=== PATIENT | male | born 1950 | race African-American/Black ===

== ENCOUNTER 2024-11-14 10:32 | Inpatient (IN) | payer OTHER ==
[~2024-11-14] VITALS: Ht 175.3 cm; Wt 77.0 kg
--- NOTE | 2024-11-14 10:41 | ED.PDOC ---
GI ASSESSMENT HPI Comments This is a 74 year old male REYNAA presenting to the ED with chief complaint of abdominal pain. EMS reports that the patient is coming from [facility] for abdominal pain for the past 3 days with associated fever and generalized weakness for the past 3 weeks. EMS relays that the patient is bed bound and currently has a Faith catheter which was noted to have cloudy urine today. Patient denies any chest pain, SOB, dizziness, chills, dysuria, hematuria, or N/V/D. Time Seen by MD: 10:38 Reviewed Notes: Nurses Notes, Service Parts Driver Notes, Medications, Allergies Information Source: Patient, Emergency Med Personnel Mode of Arrival: EMS Timing: Weeks Duration: Since onset Prehospital treatment: None Quality: Aching Vomitus: None Stool: Normal Severity: Moderate Recent: None Recent Hx of: None Pain Location: Diffuse Modifying Factors: Nothing Associated sign and symptoms: Abdominal Pain, Fever Past Medical History PAST MEDICAL HISTORY: CKF Surgical History: Denies all surgeries Family History Family History: Reviewed,noncontributory to illness Social History Smoker: Non-Smoker Alcohol: Denies ETOH Use Drugs: Denies Drug Use Lives In: Home Constitutional: reports: fever, weakness; denies: chills, diaphoresis, fatigue, malaise, sweats, others EENTM: denies: blurred vision, double vision, ear bleeding, ear discharge, ear drainage, ear pain, ear ringing, eye pain, eye redness, hearing loss, mouth pain, mouth swelling, nasal discharge, nose bleeding, nose congestion, nose pain, photophobia, tearing, throat pain, throat swelling, voice changes, others Respiratory: denies: cough, hemoptysis, orthopnea, SOB at rest, shortness of breath, SOB with excertion, stridor, wheezing, others Cardiovascular: denies: chest pain, dizzy spells, diaphoresis, Dyspnea on exertion, edema, irregular heart beat, left arm pain, lightheadedness, pal pitations, PND, syncope, others Gastrointestinal: reports: abdominal pain; denies: abdomen distended, blood streaked bowels, constipated, diarrhea, dysphagia, difficulty swallowing, hematemesis, melena, nausea, poor appetite, poor fluid intake, rectal bleeding, rectal pain, vomiting, others Genitourinary: denies: burning, dysuria, flank pain, frequency, hematuria, incontinence, penile discharge, penile sore, pain, testicle pain, testicle swell ing, urgency, others Neurological: denies: dizziness, fainting, headache, left sided numbness, left sided weakness, numbness, paresthesia, pre-existing deficit, right sided numbness, right sided weakness, seizure, speech problems, tingling, tremors, weakness, others Musculoskeletal: denies: back pain, gout, joint pain, joint swelling, muscle pain, muscle stiffness, neck pain, others Integumetry: denies: bruises, change in color, change in hair/nails, dryness, laceration, lesions, lumps, rash, wounds, others Allergic/Immunocompromised: denies: Difficulty Healing, Frequent Infections, Hives, Itching, others Hematologic/Lymphatic: denies: anemia, blood clots, easy bleeding, easy bruising, swollen glands, others Endocrine: denies: excessive hunger, excessive sweating, excessive thirst, excessive urination, flushing, intolerance to cold, intolerance to heat, unexplained weight gain, unexplained weight loss, others Psychiatric: denies: anxiety, bipolar disorder, depression, hopeless, panic disorder, schizophrenia, sleepless, suicidal, others All Other Systems: Reviewed and Negative Physical Exam General Appearance: Moderate Distress, Normal HEENT: Normal ENT Inspection, Pharynx Normal, TMs Normal Neck: Full Range of Motion, Non-Tender, Normal, Normal Inspection Respiratory: Chest Non-Tender, Lungs Clear, No Accessory Muscle Use, No Respiratory Distress, Normal Breath Sounds Cardiovascular: No Edema, No JVD, No Murmur, No Gallop, Normal Peripheral Pulses, Regular Rate/Rhythm Breast Exam: Deferred Gastrointestinal: No Organomegaly, Non Tender, No Pulsatile Mass, Normal Bowel Sounds, Soft Genitalia: Deferred Pelvic: Deferred Rectal: Deferred Extremities: No calf tenderness, Normal capillary refill, Non-tender, No pedal edema Musculoskeletal : Apperance: Normal Neurologic: Disoriented Cerebellar Function: NOT DONE Reflexes: NOT DONE Skin: Dry, Normal Color, Warm Peripheral Pulses: 3+ Radial (R), 3+ Radial (L) Lymphatic: No Adenopathy Was a procedure done? Was a procedure done?: No GI differential Dx Differential Diagnosis: Constipation, Diverticular disease, Esophagitis, Gastritis/PUD, Gastroenteritis X-Ray, Labs, Meds, VS Vital Signs Date Time Temp Pulse Resp B/P (MAP) Pulse Ox O2 Delivery O2 Flow Rate FiO2 11/14/24 12:00 109 95 Room Air* 0 21 11/14/24 11:51 112 113/54 (73) 95 11/14/24 10:35 98.3 122 17 152/70 96 98.3 Lab Test 11/14/24 12:00 Range/Units White Blood Count Pending Red Blood Count Pending Hemoglobin Pending Hematocrit Pending Mean Corpuscular Volume Pending Mean Corpuscular Hemoglobin Pending Mean Corpuscular Hemoglobin Concent Pending Red Cell Distribution Width Pending Platelet Count Pending Mean Platelet Volume Pending Neutrophils (%) (Auto) Pending Lymphocytes (%) (Auto) Pending Monocytes (%) (Auto) Pending Basophils (%) (Auto) Pending Neutrophils # (Auto) Pending Lymphocytes # (Auto) Pending Monocytes # (Auto) Pending Prothrombin Time 11.9 H 9.3-11.8 sec Prothrombin Time INR 1.14 0.9-1.15 Activated Partial Thromboplast Time 23.9 L 24.5-34.5 SEC Sodium Level Pending Potassium Level Pending Chloride Level Pending Carbon Dioxide Level Pending Anion Gap Pending Blood Urea Nitrogen Pending Creatinine Pending Glomerular Filtration Rate Calc Pending BUN/Creatinine Ratio Pending Serum Glucose Pending Lactic Acid Level Pending Calcium Level Pending Total Bilirubin Pending Aspartate Amino Transferase (AST) Pending Alanine Aminotransferase (ALT) Pending Alkaline Phosphatase Pending Total Protein Pending Albumin Pending Current Medications Medications (Trade) Dose Ordered Sig/[place] Route Start Time Stop Time Status Last Admin Vancomycin HCl 200 ml @ 200 mls/hr ONCE ONCE IV 11/14/24 11:00 11/14/24 11:59 DC 11/14/24 11:49 Sodium Chloride 1,000 ml @ 1,000 mls/hr Q1H ONCE IV 11/14/24 11:00 11/14/24 11:59 DC 11/14/24 11:49 Chest XR: [facility] [id number] [place] [id number] Ph: [phone] DIAGNOSTIC IMAGING Diagnostic Imaging Report : [id number] Signed PATIENT: PEYTON LY ACCT: [id number] UNIT: [id number] : 1950 LOC: ER ROOM / BED: / AGE / SEX: 74 / M ADM STATUS: REG ER SERVICE 1059 ORDERING PHYSICIAN: BLANQUITA GRESHAM MD PROCEDURE(s): CXRP - CHEST PORTABLE REASON: sob ORDER NUMBER(s): [id number], ACCESSION NUMBER(s): [id number] EXAM: XY CHEST PORTABLE Indication: sob Technique: Single frontal view of the chest was obtained Comparison: None FINDINGS: Lines and Tubes: None Lungs: No focal consolidation. Pleura: No effusion. No pneumothorax. Cardiomediastinal contours: Unremarkable Bones: No acute osseous abnormality. IMPRESSION: No acute cardiopulmonary disease. ATED BY: FALGUNI LOVE MD DICTATED DATE/TIME: 11/14/24 114 SIGNED BY: FALGUNI LOVE MD SIGNED DATE/TIME: 11/14/24 114 CC: Patient disoriented. Unable to get history. Vitals stable. Chronic symptom. Has a Faith catheter in place. Chest x-ray reviewed does not show any acute process. Sepsis protocol. Reviewed his history. Continue to monitor. Images Reviewed?: Images reviewed and evaluated by me Time of 1ST Reevaluation: 11:37 Reevaluation 1ST: Unchanged Patient Education/Counseling: Diagnosis, Treatment Family Education/Counseling: No Family Present SEPSIS Sepsis Screen Physician Orders Complete Blood Count (11/14/24 10:59) Comprehensive Metabolic Panel (11/14/24 10:59) Urinalysis (11/14/24 10:59) Chest Portable (11/14/24 10:59) Accucheck (11/14/24 10:59) Blood Culture (11/14/24 10:59) Lactic Acid W/ Reflex Order (11/14/24 12:00) Cefepime 1gm/ 50ml (Maxipime 1gm/50ml) (11/14/24 14:00) Notify Md If Map <65 Or Bp<90 (11/14/24 10:59) If Map<65 Start Vasopressor (11/14/24 10:59) Sepsis Reassesment After Fluid (11/14/24 11:59) Sodium Chloride 0.9% (11/14/24 11:00) Vital Signs Date Time Temp Pulse Resp B/P (MAP) Pulse Ox O2 Delivery O2 Flow Rate FiO2 11/14/24 12:00 109 95 Room Air* 0 21 11/14/24 11:51 112 113/54 (73) 95 11/14/24 10:35 98.3 122 17 152/70 96 98.3 Laboratory Tests Test 11/14/24 12:00 Lactic Acid Level Pending White Blood Count Pending Medications Medications Dose Ordered Sig/[place] Route Start Time Stop Time Status Last Admin Dose Admin Sodium Chloride 1,000 ml @ 1,000 mls/hr Q1H ONCE IV 11/14/24 11:00 11/14/24 11:59 DC 11/14/24 11:49 Vancomycin HCl 200 ml @ 200 mls/hr ONCE ONCE IV 11/14/24 11:00 11/14/24 11:59 DC 11/14/24 11:49 Departure 1 Departure Time of Disposition: 12:39 Impression: Primary Impression: Sepsis, unspecified organism Qualified Codes: A41.9 - Sepsis, unspecified organism Disposition: ADMITTED INPATIENT Admit to: Med Surg Condition: Guarded Critical Care Note Critical Care Time?: Yes (90 min-critical care time only) Stability Stability form required: No Heart Score Heart Score: Heart Score Response (Comments) Value History N/A 0 EKG N/A 0 Age N/A 0 Risk Factors N/A 0 Troponin N/A 0 Total 0 I personally scribed for BLANQUITA GRESHAM MD ([email or web address]) on 11/14/24 at 10:41. Electronically submitted by Garcia Covarrubias ([email or web address]). I personally scribed for BLANQUITA GRESHAM MD ([email or web address]) on 11/14/24 at 11:58. Electronically submitted by Garcia Covarrubias ([email or web address]). BLANQUITA GRESHAM MD Nov 14, 2024 10:41
--- NOTE | 2024-11-14 11:46 | DVH ---
EXAM: XY CHEST PORTABLE Indication: sob Technique: Single frontal view of the chest was obtained Comparison: None FINDINGS: Lines and Tubes: None Lungs: No focal consolidation. Pleura: No effusion. No pneumothorax. Cardiomediastinal contours: Unremarkable Bones: No acute osseous abnormality. IMPRESSION: No acute cardiopulmonary disease.
[2024-11-14] MEDS: VANCOMYCIN 1GM/200ML PM 200 ML IV ONE (11:49)
[2024-11-14] MEDS: SODIUM CHLORIDE 0.9% 1,000 ML IV ONE ×3 (11:49→19:30)
[2024-11-14 12:00] VITALS: PULSE 109; O2SAT 95
[2024-11-14 12:29] LABS: INR 1.14 (0.9-1.15); Partial Thromboplastin Time 23.9 SEC (24.5-34.5); Prothrombin Time 11.9 sec (9.3-11.8)
[2024-11-14 12:35] LABS: Anion Gap 10 (5-15); BUN/Creatinine Ratio 28.8 (10.0-20.0); Calcium 9.5 mg/dL (8.7-10.4); Carbon Dioxide 25 mmol/L (20-31); Chloride 100 mmol/L (98-107); Potassium 3.9 mmol/L (3.5-5.1); Total Protein 6.8 g/dL (5.7-8.2)
[2024-11-14 12:36] LABS: Albumin 3.8 g/dL (3.2-4.8); Bilirubin, Total 0.5 mg/dL (0.2-1.0)
[2024-11-14 12:38] LABS: Alanine Aminotransferase 371 U/L (7-40); Alkaline Phosphatase 520 U/L (46-116); Blood Urea Nitrogen 44 mg/dL (9-23); Glucose 121 mg/dL (74-106); Sodium 135 mmol/L (136-145)
[2024-11-14 12:39] LABS: Lactic Acid w/Reflex 2.6 mmol/L (0.4-2.0)
[2024-11-14] MEDS: CEFEPIME 1GM/ 50ML 50 ML IV SCH ×2 (14:18→21:59)
[2024-11-14 15:15] LABS: Hematocrit 27.3 % (41.0-53.0); Hemoglobin 8.8 g/dL (13.5-17.5); Mean Corpuscular Hemoglobin 28.2 pg (28.0-32.0); Mean Corpuscular Volume 87.4 fL (80.0-100.0); Nucleated Red Blood Cells % 0.1 %
[2024-11-14 19:26] LABS: Urine Amorphous Crystal FEW /hpf (None Seen); Urine Protein, UAD 1+ (Negative); Urine WBC Clumps PRESENT /hpf (None Seen)
[2024-11-14] MEDS ORDERED: ACETAMINOPHEN 325 MG TAB PO PRN (19:30)
[2024-11-14] MEDS ORDERED: ONDANSETRON HCL 4 MG/2 ML VIAL IV PRN (19:30)
[2024-11-14] MEDS ORDERED: VANCOMYCIN PER PHARMACY 0 MG IV SCH (19:30)
--- NOTE | 2024-11-14 19:30 | DVHHP2 ---
Admitting Diagnosis: Lower abdominal pain History of Present Illness This is a 74 year old male SANG presenting to the ED with chief complaint of abdominal pain. EMS reports that the patient is coming from [facility] for abdominal pain for the past 3 days with associated fever and generalized weakness for the past 3 weeks. EMS relays that the patient is bed bound and currently has a Faith catheter which was noted to have cloudy urine today. Patient denies any chest pain, SOB, dizziness, chills, dysuria, hematuria, or N/V/D. PAST MEDICAL HISTORY: CKF Surgical History: Denies all surgeries Family History Family History: Reviewed,noncontributory to illness Social History Smoker: Non-Smoker Alcohol: Denies ETOH Use Drugs: Denies Drug Use Lives In: Home Allergies: Coded Allergies: NO KNOWN ALLERGIES (Unverified , 11/14/24) Current Medications Current Medications Medications (Trade) Dose Ordered Sig/[place] Route PRN Reason Start Time Stop Time Status Last Admin Cefepime HCl 50 ml @ 12.5 mls/hr BID IV 11/14/24 14:00 11/14/24 14:18 Vital Signs Vital Signs Date Time Temp Pulse Resp B/P (MAP) Pulse Ox O2 Delivery O2 Flow Rate FiO2 11/14/24 19:00 129 126/67 (86) 90 11/14/24 14:00 18 11/14/24 12:00 Room Air* 0 21 11/14/24 10:35 98.3 98.3 Physical Exam Generally-35 years old male, well nourished well developed. Lying in bed. No apparent distress HEENT-atraumatic, normocephalic Heart-regular rate and rhythm Lungs clear to auscultate bilaterally Abdomen soft, mild tender suprapubic Musculoskeletal-no edema cyanosis Neuro-awake, alert, follows simple commands. Strength and sensory intact SEPSIS Sepsis Screen Date sepsis recognized/suspect: Nov 14, 2024 Time Sepsis recognized/suspect: 1035 Recent Procedure: No On Antibiotic Therapy: No Respiratory Rate >20: No Heart Rate >90: Yes Temp<36 C (96.8 F) or >38.3 C: No SBP <90 or MAP <65 mmHG: No New Acute Mental Status Change: No Is the patient on CPAP, BIPAP,: No Physician Orders Urinalysis (11/14/24 10:59) Chest Portable (11/14/24 10:59) Accucheck (11/14/24 10:59) Blood Culture (11/14/24 10:59) Cefepime 1gm/ 50ml (Maxipime 1gm/50ml) (11/14/24 14:00) Notify Md If Map <65 Or Bp<90 (11/14/24 10:59) If Map<65 Start Vasopressor (11/14/24 10:59) Sepsis Reassesment After Fluid (11/14/24 11:59) Urine Bacterial Culture (11/14/24 19:17) Vancomycin Per Pharmacy (11/14/24 19:30) Cefepime 1 Gm (11/14/24 22:00) Admit (11/14/24 19:17) Code Status (11/14/24 19:17) Vital Signs .PER UNIT PROTOCOL (11/14/24 19:17) Review Orders With Adm.Md (11/14/24 19:17) Encourage Activity As Tolerate (11/14/24 19:17) Regular Diet (11/15/24 Breakfast) Sodium Chloride Lock (Saline Lock Ns) (11/14/24 22:00) Docusate Sodium Capsule (Colace Capsule) (11/14/24 19:30) Acetaminophen Tablet (Tylenol Tablet) (11/14/24 19:30) Notify Md Of Changes From Base (11/14/24 19:17) Advance Directive (11/14/24 19:17) Patient Condition (11/14/24 19:17) Allergies (11/14/24 19:17) Hydrocodone-Acet 5/325mg Tab (Foreman 5/32 (11/14/24 19:30) Ondansetron Hcl (Zofran) (11/14/24 19:30) NS (11/14/24 19:30) Lactic Acid W/ Reflex Order (11/14/24 19:17) Abdomen Complete Sonogram (11/14/24 19:20) Vital Signs Date Time Temp Pulse Resp B/P (MAP) Pulse Ox O2 Delivery O2 Flow Rate FiO2 11/14/24 19:00 129 126/67 (86) 90 11/14/24 17:00 126 121/65 (83) 90 11/14/24 16:00 118 11/14/24 14:00 97 18 113/61 (78) 95 11/14/24 12:00 112 11/14/24 12:00 109 95 Room Air* 0 21 11/14/24 11:51 112 113/54 (73) 95 11/14/24 10:35 98.3 122 17 152/70 96 98.3 Laboratory Tests Test 11/14/24 12:00 11/14/24 13:50 11/14/24 15:00 Lactic Acid Level 2.6 mmol/L (0.4-2.0) *H 2.8 mmol/L (0.4-2.0) *H White Blood Count 10.8 10^3/uL (4.4-10.8) Medications Medications Dose Ordered Sig/[place] Route Start Time Stop Time Status Last Admin Dose Admin Cefepime HCl 50 ml @ 12.5 mls/hr BID IV 11/14/24 14:00 11/14/24 14:18 Sodium Chloride 1,000 ml @ 150 mls/hr Q6H40M ONCE IV 11/14/24 11:00 11/14/24 17:39 DC 11/14/24 13:25 Sodium Chloride 1,000 ml @ 1,000 mls/hr Q1H ONCE IV 11/14/24 11:00 11/14/24 11:59 DC 11/14/24 11:49 Vancomycin HCl 200 ml @ 200 mls/hr ONCE ONCE IV 11/14/24 11:00 11/14/24 11:59 DC 11/14/24 11:49 Results Labs Test 11/14/24 16:06 11/14/24 15:00 11/14/24 13:50 11/14/24 12:00 Range/Units White Blood Count 10.8 4.4-10.8 10^3/uL Red Blood Count 3.12 L 4.5-5.90 10^6/uL Hemoglobin 8.8 L 13.5-17.5 g/dL Hematocrit 27.3 L 41.0-53.0 % Mean Corpuscular Volume 87.4 80.0-100.0 fL Mean Corpuscular Hemoglobin 28.2 28.0-32.0 pg Mean Corpuscular Hemoglobin Concent 32.2 32.0-36.0 g/dL Red Cell Distribution Width 15.0 H 11.8-14.3 % Platelet Count 414 140-450 10^3/uL Mean Platelet Volume 7.2 6.9-10.8 fL Neutrophils (%) (Auto) 84.4 H 37.0-80.0 % Lymphocytes (%) (Auto) 7.0 L 10.0-50.0 % Monocytes (%) (Auto) 8.0 0.0-12.0 % Eosinophils (%) (Auto) 0.2 0.0-7.0 % Basophils (%) (Auto) 0.4 0.0-2.0 % Neutrophils # (Auto) 9.1 H 1.6-8.6 10 ^3/uL Lymphocytes # (Auto) 0.8 0.4-5.4 10 ^3/uL Monocytes # (Auto) 0.9 0-1.3 10 ^3/uL Eosinophils # (Auto) 0 0-0.8 10 ^3/uL Basophils # (Auto) 0 0-0.2 10 ^3/uL Nucleated Red Blood Cells 0.1 % Lactic Acid Level 2.8 *H 0.4-2.0 mmol/L Prothrombin Time 11.9 H 9.3-11.8 sec Prothrombin Time INR 1.14 0.9-1.15 Activated Partial Thromboplast Time 23.9 L 24.5-34.5 SEC Sodium Level 135 L 136-145 mmol/L Potassium Level 3.9 3.5-5.1 mmol/L Chloride Level 100 98-107 mmol/L Carbon Dioxide Level 25 20-31 mmol/L Anion Gap 10 5-15 Blood Urea Nitrogen 44 H 9-23 mg/dL Creatinine 1.53 H 0.700-1.30 mg/dL Glomerular Filtration Rate Calc 47 >90 mL/min BUN/Creatinine Ratio 28.8 H 10.0-20.0 Serum Glucose 121 H 74-106 mg/dL Calcium Level 9.5 8.7-10.4 mg/dL Total Bilirubin 0.5 0.2-1.0 mg/dL Aspartate Amino Transferase (AST) 261 H 13-40 U/L Alanine Aminotransferase (ALT) 371 H 7-40 U/L Alkaline Phosphatase 520 H 46-116 U/L Total Protein 6.8 5.7-8.2 g/dL Albumin 3.8 3.2-4.8 g/dL Primary Diagnosis Sepsis due to urinary tract infection Acute urinary tract lactic acidosis elevated lft Chronic urinary retention status post Faith Plan Patient has sepsis in ED Start cefepime and vanco for broad-spectrum antibiotics Follow up with the blood culture, urine culture IV fluids Elevated LFT likely due to sepsis treat urinary tract infection Trend lactic acid until normalize need medication reconciliation with pharmacy. Resume home meds after medication reconciliation Full code Heparin for DVT prophylaxis No GI prophylaxis needed Regular diet Plan discussed with: Patient Problems List: (1) UTI (urinary tract infection) (2) Sepsis, unspecified organism Status: Acute Date of Service: Nov 14, 2024 Billing Provider: NICK MORRIS MD Common Visit Codes: [id number] INP/OBS CARE (HIGH) NICK MORRIS MD Nov 14, 2024 19:30
[2024-11-14 20:00] VITALS: PULSE 80; RESP 20; O2SAT 97
--- NOTE | 2024-11-14 20:16 | DVH ---
ULTRASOUND ABDOMEN: REASON FOR EXAM: willian and elevated lft TECHNIQUE: Real-time sector scans in the transverse and longitudinal planes were obtained through th e abdomen. The exam was made difficult by inability of the patient to turn or follow instructions. FINDINGS: The liver is of normal size and contour. The hepatic echotexture is coarse and mildly echo genic. There is hepatopetal flow in the portal vein. There is no intrahepatic nor extrahepatic biliar y ductal dilatation. The common bile duct measures 5 mm. No gallstones or sludge are identified. T here is no gallbladder wall thickening nor pericholecystic fluid. There is no sonographic White's si gn. There is limited visibility of the spleen secondary to bowel gas. The pancreas is largely obscured b y bowel gas. The right kidney measures 9.5 cm. There is an approximately 4 mm nonobstructive calcification in the cortex of the interpolar region of the right kidney. There is an anechoic 2.9 x 2.6 x 3.1 cm cyst at the inferior pole of the right kidney. The left kidney measures 10.0 cm. There is an approximately 4 mm nonobstructive calculus at the interpolar region of the left kidney. There is no hydronephrosis. There is no evidence of focal renal mass. Both kidneys appear mildly echogenic. The visualized portions of the abdominal aorta demonstrate no evidence of aneurysmal dilatation. The visualized inferior vena cava is unremarkable. There is no free intraperitoneal fluid. IMPRESSION: Course and mildly liver parenchyma. This may be secondary to steatosis or another diffuse hepatic pro cess. Correlate clinically and with liver function tests. No biliary dilation. The gallbladder is sonographically unremarkable. Mildly echogenic kidneys, consistent with medical renal disease. No hydronephrosis.
[2024-11-14] MEDS: SODIUM CHLOR 0.9% PF (SALINE LOCK) 10ML VIAL/SYR IV SCH (21:29)
[2024-11-14] MEDS ORDERED: Acetam/CODEINE 120mg/12mg per 5mL UD GT PRN (21:45)
[2024-11-14] MEDS: VANCOMYCIN 750mg/150ml 150 ML IV ONE (22:40)
[2024-11-14 23:15] VITALS: BP 134/71; PULSE 130; RESP 19; TEMP 100; O2SAT 98
[2024-11-15 00:15] VITALS: BP 134/71; PULSE 129; RESP 20; TEMP 100; O2SAT 99
[2024-11-15 01:00] VITALS: BP 126/75; PULSE 115; RESP 17; TEMP 100.2; O2SAT 98
[2024-11-15] MEDS ORDERED: DIVA500T13 PO (04:44)
[2024-11-15] MEDS ORDERED: ASPI-543 PO (04:44)
[2024-11-15] MEDS ORDERED: FURO20TA3 PO (04:44)
[2024-11-15] MEDS ORDERED: MOMLQ PO (04:44)
[2024-11-15] MEDS ORDERED: ACET250T20 PO (04:44)
[2024-11-15] MEDS ORDERED: SIMV40TA18 PO (04:44)
[2024-11-15] MEDS ORDERED: LOPE2CAP PO (04:44)
[2024-11-15] MEDS ORDERED: MAGN400T40 PO (04:44)
[2024-11-15] MEDS ORDERED: FINA5TAB4 PO (04:44)
[2024-11-15 05:00] VITALS: BP 117/72; PULSE 99; RESP 18; TEMP 97.2; O2SAT 100
[2024-11-15 07:16] LABS: Nucleated Red Blood Cells % 0.0 %
[2024-11-15 07:18] LABS: Hematocrit 23.9 % (41.0-53.0); Hemoglobin 8.1 g/dL (13.5-17.5); Mean Corpuscular Hemoglobin 29.6 pg (28.0-32.0); Mean Corpuscular Volume 87.6 fL (80.0-100.0)
[2024-11-15 07:24] LABS: Albumin 3.6 g/dL (3.2-4.8); Anion Gap 11 (5-15); BUN/Creatinine Ratio 28.5 (10.0-20.0); Calcium 9.4 mg/dL (8.7-10.4); Carbon Dioxide 23 mmol/L (20-31); Chloride 107 mmol/L (98-107); Potassium 4.2 mmol/L (3.5-5.1); Sodium 141 mmol/L (136-145); Total Protein 6.4 g/dL (5.7-8.2)
[2024-11-15 07:25] LABS: Bilirubin, Total 0.5 mg/dL (0.2-1.0)
[2024-11-15 07:29] LABS: Alanine Aminotransferase 327 U/L (7-40); Alkaline Phosphatase 485 U/L (46-116); Blood Urea Nitrogen 43 mg/dL (9-23); Glucose 123 mg/dL (74-106)
[2024-11-15 09:00] VITALS: BP 125/74; PULSE 89; RESP 16; TEMP 97.2; O2SAT 99
[2024-11-15 13:00] VITALS: BP 126/84; PULSE 100; RESP 15; TEMP 98.4; O2SAT 100
[2024-11-15] MEDS ORDERED: LOPERAMIDE HCL 2 MG CAP/TAB PO PRN (13:30)
[2024-11-15] MEDS ORDERED: VANCOMYCIN 1GM/200ML PM 200 ML IV SCH (14:00)
--- NOTE | 2024-11-15 14:23 | DVHPN2 ---
Subjective Covering for [facility] today. Patient's chart is reviewed and discussed with the patient's/son as well as nurse at bedside regarding care plan. More awake and alert and feels better today. His son is at bedside. Patient's chronic Faith catheter has changed today. Continued to receive IV antibiotics. Blood cultures so far negative for growth. Urine culture shows mixed annie. Changes from previous H/P or p: No Changes Objective Vitals Vital Signs Date Time Temp Pulse Resp B/P (MAP) Pulse Ox O2 Delivery O2 Flow Rate FiO2 11/15/24 13:00 98.4 100 15 126/84 (98) 100 98.4 11/15/24 08:00 Nasal Cannula* 2 28 Intake/Output Intake and Output 11/15/24 07:00 Intake Total 2400.0 ml Output Total 1101 ml Balance 1299.0 ml Intake Oral 250 ml IV Total 2150.0 ml Output Urine Total 1100 ml Stool Total 1 ml Exam Early elderly frail-appearing gentleman in bed without significant cardiopulmonary distress. His son is at bedside. HEENT notable for pupils equal round react to light. Neck supple no JVD. Heart regular rate and rhythm S1-S2. Lungs fair air movement with a poor inspiratory effort. Abdomen soft positive bowel sounds nontender. Extremities visible muscle wasting noted. Positive distal pedal pulses noted. Patient has bilateral heel wounds which are present on admission. Medications Current Medications Medications Dose Ordered Sig/[place] Route Start Time Stop Time Status Last Admin Dose Admin Cefepime HCl 50 ml @ 12.5 mls/hr BID IV 11/14/24 22:00 11/15/24 09:45 12.5 MLS/HR Sodium Chloride 10 ml Q8HR IV 11/14/24 22:00 11/15/24 05:16 10 ML Docusate Sodium 100 mg BIDPRN PRN PO 11/14/24 19:30 Acetaminophen/ Hydrocodone Bitart 1 tab Q4HP PRN PO 11/14/24 19:30 Ondansetron HCl 4 mg Q4HP PRN IV 11/14/24 19:30 Acetaminophen 650 mg Q6HP PRN PO 11/14/24 22:00 Enteral Nutritional Formula 240 ml BIDWM PO 11/15/24 18:00 Tamsulosin HCl 0.4 mg QPM PO 11/15/24 18:00 Finasteride 5 mg DAILY PO 11/16/24 10:00 Enoxaparin Sodium 30 mg DAILY SC 11/16/24 10:00 UNV Aspirin 81 mg DAILY PO 11/16/24 10:00 Loperamide HCl 2 mg Q6HPRN PRN PO 11/15/24 13:30 Patient Own Medication 500 mg DAILY PO 11/16/24 10:00 UNV Patient Own Medication 400 mg DAILY PO 11/16/24 10:00 UNV Laboratory Results Laboratory Tests 11/15/24 05:51 Chemistry Test 11/15/24 05:51 Albumin 3.6 g/dL (3.2-4.8) Calcium Level 9.4 mg/dL (8.7-10.4) Total Protein 6.4 g/dL (5.7-8.2) LFT Test 11/15/24 05:51 Alanine Aminotransferase (ALT) 327 U/L (7-40) H Alkaline Phosphatase 485 U/L (46-116) H Aspartate Amino Transferase (AST) 220 U/L (13-40) H Total Bilirubin 0.5 mg/dL (0.2-1.0) Urinalysis Test 11/14/24 16:06 Urine Color Dark-brown (Yellow) Urine Clarity Ex.turbid (Clear) Urine pH 5.5 (5.0-9.0) Urine Specific [place] 1.010 (1.001-1.035) Urine Protein 1+ (Negative) H Urine Ketones Negative (Negative) Urine Blood 3+ /uL (Negative) H Urine Nitrite Negative (Negative) Urine Bilirubin Negative (Negative) Urine Urobilinogen 2 mg/dL (Negative) H Urine Leukocyte Esterase 3+ /uL (Negative) Urine RBC 113 /hpf (0 - 3) Urine WBC Clumps Present /hpf (None Seen) Urine Microscopic WBC 1830 /HPF (0-3) H Urine Squamous Epithelial Cells None seen /hpf (<5) Urine Amorphous Crystals Few /hpf (None Seen) Urine Bacteria Few /hpf (None Seen) H Urine Glucose Normal mg/dL (Normal) Microbiology Microbiology Date/Time Source Procedure Growth Status 11/15/24 02:30 Nose MRSA Screen - Final Complete 11/14/24 16:06 Voided Urine Urine Culture - Preliminary Resulted 11/14/24 12:00 Blood Blood Culture - Preliminary NO GROWTH AFTER 24 HOURS OF INCUBATION. Resulted Assessment/Plan Assessment/Plan [facility] with a chronic Faith catheter and possible urinary tract infection with early sepsis. His lactic acid is normalized. LFTs are improving. We will have physical therapy evaluation. Provide protein supplementation with ensure or boost. Continue current IV antibiotics. Consider repeating urine culture given initial one showing mixed annie possible contamination. Wound care consultation. Otherwise resume his home BPH medications. Urology consultation. Continue to hold statin given elevated LFTs which are improving. Otherwise continue rest of supportive care and treatment. Follow clinical management per clinical course. Discussed with the patient and nurse regarding care plan. Plan discussed with: Patient, Son My Orders Orders - ALEE JENKINS MD Procedure Category Date Status Time Pt Request For Service PT 11/15/24 Logged 13:27 * Urology Consult CONS 11/15/24 Transmitted 13:27 Nutritional PHA 11/15/24 In Process Supplements (Ensure 18:00 Tamsulosin PHA 11/15/24 In Process Hydrochloride (Flomax) 18:00 Finasteride Tablet PHA 11/16/24 In Process (Proscar Tablet) 10:00 Enoxaparin Sodium PHA 11/16/24 Logged (Lovenox) 10:00 Aspirin Enteric PHA 11/16/24 In Process Coated Tablet 10:00 Loperamide Capsule PHA 11/15/24 In Process (Imodium Capsule) 13:30 (Nf) Divalproex Sodium PHA 11/16/24 Logged 10:00 (Nf) Magnesium Oxide PHA 11/16/24 Logged 10:00 Problem List: (1) Sepsis, unspecified organism (2) UTI (urinary tract infection) Date of Service: Nov 15, 2024 Billing Provider: ALEE JENKINS MD Common Visit Codes: [id number]-[id number] INP/OBS CARE(MOD) ALEE JENKINS MD Nov 15, 2024 14:23
[2024-11-15 17:00] VITALS: BP 128/76; PULSE 91; RESP 15; TEMP 97.8; O2SAT 100
[2024-11-15] MEDS: TAMSULOSIN HYDROCHLORIDE 0.4 MG CAP PO SCH (17:48)
[2024-11-15] MEDS: Ensure HIGH Protein Chocolate 8oz Bottle PO SCH (17:49)
[2024-11-16 01:00] VITALS: BP 121/75; PULSE 104; RESP 18; TEMP 98; O2SAT 94
[2024-11-16] MEDS: ACETAMINOPHEN 650 mg PER 20.3 mL UD PO PRN (01:13)
[2024-11-16 05:00] VITALS: BP 127/88; PULSE 104; RESP 17; TEMP 98.4; O2SAT 95
[2024-11-16 06:36] LABS: Hemoglobin 7.7 g/dL (13.5-17.5); Nucleated Red Blood Cells % 0.1 %
[2024-11-16 06:38] LABS: Hematocrit 23.1 % (41.0-53.0); Mean Corpuscular Hemoglobin 29.9 pg (28.0-32.0); Mean Corpuscular Volume 89.4 fL (80.0-100.0)
[2024-11-16 06:58] LABS: Anion Gap 9 (5-15); BUN/Creatinine Ratio 38.9 (10.0-20.0); Calcium 9.2 mg/dL (8.7-10.4); Carbon Dioxide 23 mmol/L (20-31); Chloride 107 mmol/L (98-107); Glucose 103 mg/dL (74-106); Potassium 4.3 mmol/L (3.5-5.1); Sodium 139 mmol/L (136-145); Total Protein 5.8 g/dL (5.7-8.2)
[2024-11-16 06:59] LABS: Albumin 3.3 g/dL (3.2-4.8)
[2024-11-16 07:00] LABS: Alanine Aminotransferase 306 U/L (7-40); Alkaline Phosphatase 383 U/L (46-116); Bilirubin, Total 0.3 mg/dL (0.2-1.0); Blood Urea Nitrogen 44 mg/dL (9-23)
[2024-11-16 09:00] VITALS: BP 128/80; PULSE 95; RESP 16; TEMP 98.2; O2SAT 98
[2024-11-16] MEDS: ENOXAPARIN SOD 30 MG/0.3 ML SYRINGE SC SCH (10:00)
[2024-11-16] MEDS: MAGNESIUM OXIDE 400 MG TAB PO SCH (11:39)
[2024-11-16] MEDS: FINASTERIDE 5 MG TAB PO SCH (11:40)
[2024-11-16] MEDS: ASPirin-EC 81 mg tab PO SCH (11:41)
[2024-11-16 13:00] VITALS: BP 125/75; PULSE 90; RESP 18; TEMP 98.4; O2SAT 98
[2024-11-16 17:00] VITALS: BP 135/82; PULSE 103; RESP 18; TEMP 97.8; O2SAT 100
--- NOTE | 2024-11-16 20:17 | DVHPN2 ---
Subjective Clinically improving. Mentation is improved and weakness has improved for son who is at bedside. Urine cultures are growing E coli and Enterococcus. Patient's chronic indwelling Faith catheter has changed yesterday. Changes from previous H/P or p: No Changes Objective Vitals Vital Signs Date Time Temp Pulse Resp B/P (MAP) Pulse Ox O2 Delivery O2 Flow Rate FiO2 11/16/24 17:00 97.8 103 18 135/82 (99) 100 97.8 11/16/24 08:00 Nasal Cannula* 2 28 Intake/Output Intake and Output 11/16/24 07:00 Intake Total 1410 ml Output Total 1900 ml Balance -490 ml Intake Oral 1310 ml IV Total 100 ml Output Urine Total 1900 ml Exam Early elderly frail-appearing gentleman in bed without significant cardiopulmonary distress. His son is at bedside. HEENT notable for pupils equal round react to light. Neck supple no JVD. Heart regular rate and rhythm S1-S2. Lungs fair air movement with a poor inspiratory effort. Abdomen soft positive bowel sounds nontender. Extremities visible muscle wasting noted. Positive distal pedal pulses noted. Patient has bilateral heel wounds which are present on admission. Medications Current Medications Medications Dose Ordered Sig/[place] Route Start Time Stop Time Status Last Admin Dose Admin Cefepime HCl 50 ml @ 12.5 mls/hr BID IV 11/14/24 22:00 11/16/24 11:38 12.5 MLS/HR Sodium Chloride 10 ml Q8HR IV 11/14/24 22:00 11/16/24 14:21 10 ML Docusate Sodium 100 mg BIDPRN PRN PO 11/14/24 19:30 Acetaminophen/ Hydrocodone Bitart 1 tab Q4HP PRN PO 11/14/24 19:30 Ondansetron HCl 4 mg Q4HP PRN IV 11/14/24 19:30 Acetaminophen 650 mg Q6HP PRN PO 11/14/24 22:00 11/16/24 11:39 650 MG Enteral Nutritional Formula 240 ml BIDWM PO 11/15/24 18:00 11/16/24 18:29 240 ML Tamsulosin HCl 0.4 mg QPM PO 11/15/24 18:00 11/16/24 18:29 0.4 MG Finasteride 5 mg DAILY PO 11/16/24 10:00 11/16/24 11:40 5 MG Enoxaparin Sodium 30 mg DAILY SC 11/16/24 10:00 11/16/24 10:00 30 MG Aspirin 81 mg DAILY PO 11/16/24 10:00 11/16/24 11:41 81 MG Loperamide HCl 2 mg Q6HPRN PRN PO 11/15/24 13:30 Divalproex Sodium 500 mg DAILY PO 11/16/24 10:00 11/16/24 11:39 500 MG Magnesium Oxide 400 mg DAILY PO 11/16/24 10:00 11/16/24 11:39 400 MG Laboratory Results Laboratory Tests 11/16/24 05:45 Chemistry Test 11/16/24 05:45 Albumin 3.3 g/dL (3.2-4.8) Calcium Level 9.2 mg/dL (8.7-10.4) Total Protein 5.8 g/dL (5.7-8.2) LFT Test 11/16/24 05:45 Alanine Aminotransferase (ALT) 306 U/L (7-40) H Alkaline Phosphatase 383 U/L (46-116) H Aspartate Amino Transferase (AST) 195 U/L (13-40) H Total Bilirubin 0.3 mg/dL (0.2-1.0) Urinalysis Test 11/14/24 16:06 Urine Color Dark-brown (Yellow) Urine Clarity Ex.turbid (Clear) Urine pH 5.5 (5.0-9.0) Urine Specific [place] 1.010 (1.001-1.035) Urine Protein 1+ (Negative) H Urine Ketones Negative (Negative) Urine Blood 3+ /uL (Negative) H Urine Nitrite Negative (Negative) Urine Bilirubin Negative (Negative) Urine Urobilinogen 2 mg/dL (Negative) H Urine Leukocyte Esterase 3+ /uL (Negative) Urine RBC 113 /hpf (0 - 3) Urine WBC Clumps Present /hpf (None Seen) Urine Microscopic WBC 1830 /HPF (0-3) H Urine Squamous Epithelial Cells None seen /hpf (<5) Urine Amorphous Crystals Few /hpf (None Seen) Urine Bacteria Few /hpf (None Seen) H Urine Glucose Normal mg/dL (Normal) Microbiology Microbiology Date/Time Source Procedure Growth Status 11/15/24 02:30 Nose MRSA Screen - Final Complete 11/14/24 16:06 Voided Urine Urine Culture - Final Escherichia coli Enterococcus faecalis Complete 11/14/24 12:00 Blood Blood Culture - Preliminary NO GROWTH AFTER 48 HOURS OF INCUBATION. Resulted Assessment/Plan Assessment/Plan Based on urine cultures we will switch him to Levaquin. Get an EKG to eval for QTC given he is going to be on Levaquin. Continue physical therapy and encouraged oral diet as much as possible. Patient is at risk for further infections given his chronic indwelling Faith catheter. Patient apparently has a obstructive uropathy. Urology consultation is pending. Otherwise continue rest of supportive care and treatment and further clinical management per clinical course. Discussed with the son at bedside regarding care plan. Plan discussed with: Patient, Son My Orders Orders - ALEE JENKINS MD Procedure Category Date Status Time Apply Barrier Cream RAMESH 11/16/24 In Process 11:40 Levofloxacin Levaquin PHA 11/17/24 Transmitted 10:00 Levofloxacin Levaquin PHA 11/16/24 Transmitted 20:15 Electrocardigram EKG 11/16/24 Transmitted 20:13 * Renewals Representative CONS 11/16/24 Transmitted Consult Problem List: (1) UTI (urinary tract infection) (2) Sepsis, unspecified organism Date of Service: Nov 16, 2024 Billing Provider: ALEE JENKINS MD Common Visit Codes: [id number] INP/OBS CARE(MOD) ALEE JENKINS MD Nov 16, 2024 20:17
[2024-11-16 21:00] VITALS: BP 119/72; PULSE 115; RESP 19; TEMP 97.7; O2SAT 100
--- NOTE | 2024-11-16 21:22 | ECG ---
[facility] Test Date: 2024-11-16 Test Time: 21:19:42 Pat Name: PEYTON LY Department: Room: 0277 B Gender: M Music Agent: MARITZA : [id number] Requested By: ALEE JENKINS Order Number: [id number] Reading MD: Nemesio Garnett Measurements Intervals [place] Rate: 115 P: 71 FL: 127 QRS: 55 QRSD: 80 T: 83 QT: 326 QTc: 451 Interpretive Statements Sinus tachycardia Abnormal R-wave progression, early transition Electronically Signed On 11-17-2024 21:42:56 PDT by Nemesio Garnett Please click the below link to view image of tracing.
[2024-11-17] VITALS (8 sets, daily range): BP systolic 103–122; BP diastolic 57–81; PULSE 81–116; RESP 16–20; TEMP 97.3–98.2; O2SAT 96–100
[2024-11-17] MEDS: DOCUSATE SOD 100 MG CAP PO PRN (09:47)
[2024-11-17 11:19] LABS: Hematocrit 24.1 % (41.0-53.0); Hemoglobin 7.9 g/dL (13.5-17.5); Mean Corpuscular Hemoglobin 28.3 pg (28.0-32.0); Mean Corpuscular Volume 86.0 fL (80.0-100.0); Nucleated Red Blood Cells % 0.1 %
[2024-11-17 11:38] LABS: Albumin 3.5 g/dL (3.2-4.8); Anion Gap 10 (5-15); BUN/Creatinine Ratio 45.9 (10.0-20.0); Calcium 9.4 mg/dL (8.7-10.4); Carbon Dioxide 26 mmol/L (20-31); Chloride 101 mmol/L (98-107); Potassium 4.4 mmol/L (3.5-5.1); Sodium 137 mmol/L (136-145); Total Protein 6.3 g/dL (5.7-8.2)
[2024-11-17 11:40] LABS: Alanine Aminotransferase 357 U/L (7-40); Alkaline Phosphatase 367 U/L (46-116); Bilirubin, Total 0.2 mg/dL (0.2-1.0); Blood Urea Nitrogen 51 mg/dL (9-23); Glucose 114 mg/dL (74-106)
--- NOTE | 2024-11-17 14:15 | DVHPN2 ---
Subjective Clinically improving. Mentation is improved and weakness has improved for son who is at bedside. Still appetite is poor. Changes from previous H/P or p: No Changes Objective Vitals Vital Signs Date Time Temp Pulse Resp B/P (MAP) Pulse Ox O2 Delivery O2 Flow Rate FiO2 11/17/24 13:00 97.8 114 19 110/74 (86) 96 97.8 11/17/24 08:00 Nasal Cannula* 2 28 Intake/Output Intake and Output 11/17/24 07:00 Intake Total 800 ml Output Total 3553 ml Balance -2753 ml Intake Oral 750 ml IV Total 50 ml Output Urine Total 3553 ml Exam Early elderly frail-appearing gentleman in bed without significant cardiopulmonary distress. His son is at bedside. HEENT notable for pupils equal round react to light. Neck supple no JVD. Heart regular rate and rhythm S1-S2. Lungs fair air movement with a poor inspiratory effort. Abdomen soft positive bowel sounds nontender. Extremities visible muscle wasting noted. Positive distal pedal pulses noted. Patient has bilateral heel wounds which are present on admission. Medications Current Medications Medications Dose Ordered Sig/[place] Route Start Time Stop Time Status Last Admin Dose Admin Sodium Chloride 10 ml Q8HR IV 11/14/24 22:00 11/17/24 05:38 10 ML Docusate Sodium 100 mg BIDPRN PRN PO 11/14/24 19:30 11/17/24 09:47 100 MG Acetaminophen/ Hydrocodone Bitart 1 tab Q4HP PRN PO 11/14/24 19:30 Ondansetron HCl 4 mg Q4HP PRN IV 11/14/24 19:30 Acetaminophen 650 mg Q6HP PRN PO 11/14/24 22:00 11/17/24 09:40 650 MG Enteral Nutritional Formula 240 ml BIDWM PO 11/15/24 18:00 11/17/24 08:17 240 ML Tamsulosin HCl 0.4 mg QPM PO 11/15/24 18:00 11/16/24 18:29 0.4 MG Finasteride 5 mg DAILY PO 11/16/24 10:00 11/17/24 09:40 5 MG Enoxaparin Sodium 30 mg DAILY SC 11/16/24 10:00 11/17/24 09:40 30 MG Aspirin 81 mg DAILY PO 11/16/24 10:00 11/17/24 09:39 81 MG Loperamide HCl 2 mg Q6HPRN PRN PO 11/15/24 13:30 Divalproex Sodium 500 mg DAILY PO 11/16/24 10:00 11/17/24 09:40 500 MG Magnesium Oxide 400 mg DAILY PO 11/16/24 10:00 11/17/24 09:39 400 MG Levofloxacin/ Dextrose 100 ml @ 100 mls/hr DAILY IV 11/17/24 10:00 11/17/24 09:35 100 MLS/HR Laboratory Results Laboratory Tests 11/17/24 10:50 Chemistry Test 11/17/24 10:50 Albumin 3.5 g/dL (3.2-4.8) Calcium Level 9.4 mg/dL (8.7-10.4) Total Protein 6.3 g/dL (5.7-8.2) LFT Test 11/17/24 10:50 Alanine Aminotransferase (ALT) 357 U/L (7-40) H Alkaline Phosphatase 367 U/L (46-116) H Aspartate Amino Transferase (AST) 176 U/L (13-40) H Total Bilirubin 0.2 mg/dL (0.2-1.0) Urinalysis Test 11/14/24 16:06 Urine Color Dark-brown (Yellow) Urine Clarity Ex.turbid (Clear) Urine pH 5.5 (5.0-9.0) Urine Specific [place] 1.010 (1.001-1.035) Urine Protein 1+ (Negative) H Urine Ketones Negative (Negative) Urine Blood 3+ /uL (Negative) H Urine Nitrite Negative (Negative) Urine Bilirubin Negative (Negative) Urine Urobilinogen 2 mg/dL (Negative) H Urine Leukocyte Esterase 3+ /uL (Negative) Urine RBC 113 /hpf (0 - 3) Urine WBC Clumps Present /hpf (None Seen) Urine Microscopic WBC 1830 /HPF (0-3) H Urine Squamous Epithelial Cells None seen /hpf (<5) Urine Amorphous Crystals Few /hpf (None Seen) Urine Bacteria Few /hpf (None Seen) H Urine Glucose Normal mg/dL (Normal) Microbiology Microbiology Date/Time Source Procedure Growth Status 11/15/24 02:30 Nose MRSA Screen - Final Complete 11/14/24 16:06 Voided Urine Urine Culture - Final Escherichia coli Enterococcus faecalis Complete 11/14/24 12:00 Blood Blood Culture - Preliminary NO GROWTH AFTER 72 HOURS OF INCUBATION. Resulted Assessment/Plan Assessment/Plan Continue Levaquin care. Patient's Faith catheter we will be removed today to see if he can void on his own. Patient does have a large prostate on Flomax and finasteride. We will do bladder scan every 6 hours overnight. If patient unable to void then we will reinsert Faith catheter. This is discussed with the patient and son at bedside. Ideally one would avoid chronic indwelling Faith catheter given his urinary tract infection. Otherwise I will add Megace for appetite stimulant. Otherwise continue rest of supportive care and treatment. Follow clinical management per clinical course. Discussed with the patient as well as nurse at bedside regarding care plan. Plan discussed with: Patient, Son My Orders Orders - ALEE JENKINS MD Procedure Category Date Status Time Apply Barrier Cream RAMESH 11/16/24 In Process 11:40 Levofloxacin 500mg PHA 11/17/24 In Process (Levaquin 500mg/ 100m 10:00 * Lead Cook CONS 11/16/24 Transmitted Consult Problem List: (1) Sepsis, unspecified organism (2) UTI (urinary tract infection) Date of Service: Nov 17, 2024 Billing Provider: ALEE JENKINS MD Common Visit Codes: [id number] INP/OBS CARE(MOD) ALEE JENKINS MD Nov 17, 2024 14:15
--- NOTE | 2024-11-17 21:02 | DVH ---
INDICATION: Faith catheter removed and eval for urinary retention TECHNIQUE: Multiple real-time grayscale transabdominal sonographic images along with color and duplex Doppler of the uterus and ovaries were obtained. COMPARISON: US ABDOMEN COMPLETE SONOGRAM on DOS: 11/14/24 FINDINGS: Prostate measures 5.8 x 5.4 x 7.1 cm volume 116.64 cc. Prevoid bladder volume 330.96. Bilateral ureteral jets visualized. Subsequent color and duplex Doppler interrogation of the ovaries demonstrated symmetric vascular flow to both ovaries, though this does not exclude the possibility of torsion due to the dual blood suppl y. IMPRESSION: 1. Enlarged prostate with volume of 116.64 cc consider correlated with PSA. 2. Prevoid bladder volume 330.96 cc
[2024-11-17] MEDS: MEGESTROL ACET 400MG/10ML ORAL SUSP PO SCH (22:00)
[2024-11-18] VITALS (9 sets, daily range): BP systolic 99–138; BP diastolic 59–87; PULSE 99–119; RESP 16–19; TEMP 97–97.9; O2SAT 92–100
--- NOTE | 2024-11-18 07:51 | DVH ---
History: Faith catheter removed and eval for urinary retention Comparison: US BLADDER on DOS: 11/17/24, US ABDOMEN COMPLETE SONOGRAM on DOS: 11/14/24 Technique: Grayscale and color Doppler ultrasound of the pelvis was obtained. Pre-and postvoid images of the bladder were obtained. FINDINGS/IMPRESSION: Prevoid bladder volume is 291 cc. Prostate gland measures 94 cc.
[2024-11-18 10:45] LABS: Nucleated Red Blood Cells % 0.0 %
[2024-11-18 10:48] LABS: Hematocrit 24.2 % (41.0-53.0); Hemoglobin 8.2 g/dL (13.5-17.5); Mean Corpuscular Hemoglobin 29.4 pg (28.0-32.0); Mean Corpuscular Volume 86.9 fL (80.0-100.0)
[2024-11-18 10:56] LABS: Albumin 3.8 g/dL (3.2-4.8); Anion Gap 11 (5-15); BUN/Creatinine Ratio 44.5 (10.0-20.0); Calcium 9.8 mg/dL (8.7-10.4); Carbon Dioxide 25 mmol/L (20-31); Chloride 103 mmol/L (98-107); Potassium 4.1 mmol/L (3.5-5.1); Sodium 139 mmol/L (136-145); Total Protein 6.7 g/dL (5.7-8.2)
[2024-11-18 10:58] LABS: Alanine Aminotransferase 251 U/L (7-40); Alkaline Phosphatase 352 U/L (46-116); Bilirubin, Total 0.2 mg/dL (0.2-1.0); Blood Urea Nitrogen 53 mg/dL (9-23); Glucose 130 mg/dL (74-106)
--- NOTE | 2024-11-18 11:10 | DVH ---
CT CT AB PEL WO CON-NO ORAL OR IV INDICATION: stones EXAM DATE: 11/18/2024 09:46 AM COMPARISON: US ABDOMEN COMPLETE SONOGRAM on DOS: 11/14/24 RADIATION DOSE: CTDIvol: 9.6 mGy, DLP: 595.58 mGy*cm PROCEDURE: Helical CT images were obtained of the abdomen and pelvis without IV contrast Sagittal and coronal reconstructions are provided. ORAL CONTRAST: None. ADDITIONAL IMAGES / REFORMATS: None All C T scans at this medical facility are performed using dose modulation techniques as appropriate to a p erformed exam including the following: Automated exposure control was utilized; adjustment of the MA and/or KV according to patient size; and use of iterative reconstruction technique. FINDINGS: LUNG BASE: Bibasilar atelectasis. LIVER: 5 mm hepatic cystic lesion is too small to characterize. GALLBLADDER AND BILIARY TREE: No calcified gallstones. Normal caliber wall. No intra- or extrahepatic biliary ductal dilation. PANCREAS: Normal. SPLEEN: Normal. BOWEL: Severe sigmoid colonic diverticulosis. Normal appendix. ADRENALS: Normal. KIDNEYS AND URETER: 2.5 cm right kidney cyst. Punctate bilateral kidney stones. BLADDER: Normal. REPRODUCTIVE ORGANS: Normal. LYMPH NODES:No lymphadenopathy. PERITONEUM: No ascites or free air. No other fluid collection. VESSELS: Scattered atherosclerotic calcifications are noted. RETROPERITONEUM: Normal. ABDOMINAL WALL: Normal. BONES: Scattered osseous degenerative changes are noted. IMPRESSION: No acute intraabdominal abnormality. Punctate bilateral kidney stones. Severe sigmoid colonic diverticulosis.
--- NOTE | 2024-11-18 13:31 | DVHINCON2 ---
Date of service: Nov 18, 2024 Referring Physician hospitalist Reason for Consultation urinary retention, BPH History of Present Illness History Source: Patient, Family, RN Notes, MD Notes, Old Records Exam Limitations: No limitations HPI 74 yo male with hx of BPH and urinary retention. Pt has been on dual therapy for many years. Ownes was replaced by me today. Prostate volume approx 100 gms. Pt is interested in prostate reduction surgery. Home Meds Reported Medications Finasteride (Finasteride) 5 Mg Tab, 5 MG PO DAILY for 30 Days, MG 11/15/24 Furosemide (Furosemide) 20 Mg Tab, 20 MG PO DAILY for 30 Days, MG 11/15/24 Loperamide Hcl (Loperamide Hcl) 2 Mg Cap, 2 MG PO Q6HPRN PRN for FOR DIARRHEA, MG 11/15/24 Simvastatin (Simvastatin) 40 Mg Tab, 1 TAB PO QPM, #30 TAB 5 Refills 11/15/24 Acetazolamide (Acetazolamide) 250 Mg Tab, 500 MG PO Q6HR for 30 Days, MG 0 Refills 11/15/24 Aspirin (Aspir-Low) 81 Mg Tab, 81 MG PO DAILY for 30 Days, MG 11/15/24 Divalproex Sodium (Divalproex Sodium) 500 Mg Tab, 500 MG PO DAILY for 30 Days, MG 11/15/24 Magnesium Hydroxide (MILK OF MAGNESIA ORAL SUSPENSION) 30 Ml Ss, 30 ML PO, ML 11/15/24 Magnesium Oxide (MAGNESIUM OXIDE) 400 Mg Tab, 400 MG PO DAILY, TAB 11/15/24 Past Medical History Renal/: UTI, Benign prostatic enlarg. Patient Family History: Colon cancer G8 MOTHER Smoker: No Hx (Negative) Alocohol: None Drugs: None Domestic Violence: Neg Review of Systems Genitourinary: Retention H&P Exam Vital Signs Vital Signs Date Time Temp Pulse Resp B/P (MAP) Pulse Ox O2 Delivery O2 Flow Rate FiO2 11/18/24 13:00 97.0 100 16 120/73 (89) 95 97.0 11/18/24 08:00 Nasal Cannula* 2 28 General Appeara: Well developed, Well nourished, Normal Appearance Pulmonary/Respiratory: Normal inspection, Normal breath sounds, Chest non- tender, Lungs clear Cardiovascular/Chest: Normal inspection, Regular rate, Normal Rhythm Neuro/Mental St: Alert, Oriented Appearance: Appropriate appearance, Appropriate insight Eye contact/ Speech: Cooperative, Good eye contact, Normal speech Skin Exam: Normal inspection, Normal color, Warm/dry Labs/Xrays Labs Test 11/18/24 09:32 11/15/24 10:35 11/14/24 20:33 11/14/24 16:06 Range/Units White Blood Count 9.8 4.4-10.8 10^3/uL Red Blood Count 2.79 L 4.5-5.90 10^6/uL Hemoglobin 8.2 L 13.5-17.5 g/dL Hematocrit 24.2 L 41.0-53.0 % Mean Corpuscular Volume 86.9 80.0-100.0 fL Mean Corpuscular Hemoglobin 29.4 28.0-32.0 pg Mean Corpuscular Hemoglobin Concent 33.9 32.0-36.0 g/dL Red Cell Distribution Width 15.0 H 11.8-14.3 % Platelet Count 416 140-450 10^3/uL Mean Platelet Volume 7.6 6.9-10.8 fL Neutrophils (%) (Auto) 80.2 H 37.0-80.0 % Lymphocytes (%) (Auto) 11.2 10.0-50.0 % Monocytes (%) (Auto) 7.5 0.0-12.0 % Eosinophils (%) (Auto) 0.7 0.0-7.0 % Basophils (%) (Auto) 0.4 0.0-2.0 % Neutrophils # (Auto) 7.8 1.6-8.6 10 ^3/uL Lymphocytes # (Auto) 1.1 0.4-5.4 10 ^3/uL Monocytes # (Auto) 0.7 0-1.3 10 ^3/uL Eosinophils # (Auto) 0.1 0-0.8 10 ^3/uL Basophils # (Auto) 0 0-0.2 10 ^3/uL Nucleated Red Blood Cells 0.0 % Sodium Level 139 136-145 mmol/L Potassium Level 4.1 3.5-5.1 mmol/L Chloride Level 103 98-107 mmol/L Carbon Dioxide Level 25 20-31 mmol/L Anion Gap 11 5-15 Blood Urea Nitrogen 53 H 9-23 mg/dL Creatinine 1.19 0.700-1.30 mg/dL Glomerular Filtration Rate Calc 63 >90 mL/min BUN/Creatinine Ratio 44.5 H 10.0-20.0 Serum Glucose 130 H 74-106 mg/dL Calcium Level 9.8 8.7-10.4 mg/dL Total Bilirubin 0.2 0.2-1.0 mg/dL Aspartate Amino Transferase (AST) 88 H 13-40 U/L Alanine Aminotransferase (ALT) 251 H 7-40 U/L Alkaline Phosphatase 352 H 46-116 U/L Total Protein 6.7 5.7-8.2 g/dL Albumin 3.8 3.2-4.8 g/dL Random Vancomycin Level 12.9 H 5-10 ug/mL Lactic Acid Level 1.4 0.4-2.0 mmol/L Urine Color Dark-brown Yellow Urine Clarity Ex.turbid Clear Urine pH 5.5 5.0-9.0 Urine Specific [place] 1.010 1.001-1.035 Urine Protein 1+ H Negative Urine Ketones Negative Negative Urine Blood 3+ H Negative /uL Urine Nitrite Negative Negative Urine Bilirubin Negative Negative Urine Urobilinogen 2 H Negative mg/dL Urine Leukocyte Esterase 3+ Negative /uL Urine RBC 113 0 - 3 /hpf Urine WBC Clumps Present None Seen /hpf Urine Microscopic WBC 1830 H 0-3 /HPF Urine Squamous Epithelial Cells None seen <5 /hpf Urine Amorphous Crystals Few None Seen /hpf Urine Bacteria Few H None Seen /hpf Urine Glucose Normal Normal mg/dL Test 11/14/24 12:00 Range/Units Prothrombin Time 11.9 H 9.3-11.8 sec Prothrombin Time INR 1.14 0.9-1.15 Activated Partial Thromboplast Time 23.9 L 24.5-34.5 SEC Microbiology Date/Time Source Procedure Growth Status 11/15/24 02:30 Nose MRSA Screen - Final Complete 11/14/24 16:06 Voided Urine Urine Culture - Final Escherichia coli Enterococcus faecalis Complete 11/14/24 12:00 Blood Blood Culture - Preliminary NO GROWTH AFTER 72 HOURS OF INCUBATION. Resulted Assessment/Plan Problem List: (1) Retention of urine (2) BPH (benign prostatic hyperplasia) (3) UTI (urinary tract infection) Plan keep owens to gravity check PSA outpt aquablation TBA Plan discussed with: Patient, Son, Other NELSON BAUGH NP Nov 18, 2024 13:31
[2024-11-18] MEDS ORDERED: LEVO500T91 PO (13:49)
--- NOTE | 2024-11-18 13:51 | DVHDS2 ---
Discharge Summary Date of Admission Nov 14, 2024 at 19:17 Date of Discharge: Nov 18, 2024 Labs/Diagnostic Data: Laboratory Results Test 11/18/24 09:32 11/15/24 10:35 11/14/24 20:33 11/14/24 16:06 White Blood Count 9.8 10^3/uL (4.4-10.8) Red Blood Count 2.79 10^6/uL (4.5-5.90) Hemoglobin 8.2 g/dL (13.5-17.5) Hematocrit 24.2 % (41.0-53.0) Mean Corpuscular Volume 86.9 fL (80.0-100.0) Mean Corpuscular Hemoglobin 29.4 pg (28.0-32.0) Mean Corpuscular Hemoglobin Concent 33.9 g/dL (32.0-36.0) Red Cell Distribution Width 15.0 % (11.8-14.3) Platelet Count 416 10^3/uL (140-450) Mean Platelet Volume 7.6 fL (6.9-10.8) Neutrophils (%) (Auto) 80.2 % (37.0-80.0) Lymphocytes (%) (Auto) 11.2 % (10.0-50.0) Monocytes (%) (Auto) 7.5 % (0.0-12.0) Eosinophils (%) (Auto) 0.7 % (0.0-7.0) Basophils (%) (Auto) 0.4 % (0.0-2.0) Neutrophils # (Auto) 7.8 10 ^3/uL (1.6-8.6) Lymphocytes # (Auto) 1.1 10 ^3/uL (0.4-5.4) Monocytes # (Auto) 0.7 10 ^3/uL (0-1.3) Eosinophils # (Auto) 0.1 10 ^3/uL (0-0.8) Basophils # (Auto) 0 10 ^3/uL (0-0.2) Nucleated Red Blood Cells 0.0 % Sodium Level 139 mmol/L (136-145) Potassium Level 4.1 mmol/L (3.5-5.1) Chloride Level 103 mmol/L (98-107) Carbon Dioxide Level 25 mmol/L (20-31) Anion Gap 11 (5-15) Blood Urea Nitrogen 53 mg/dL (9-23) Creatinine 1.19 mg/dL (0.700-1.30) Glomerular Filtration Rate Calc 63 mL/min (>90) BUN/Creatinine Ratio 44.5 (10.0-20.0) Serum Glucose 130 mg/dL (74-106) Calcium Level 9.8 mg/dL (8.7-10.4) Total Bilirubin 0.2 mg/dL (0.2-1.0) Aspartate Amino Transferase (AST) 88 U/L (13-40) Alanine Aminotransferase (ALT) 251 U/L (7-40) Alkaline Phosphatase 352 U/L (46-116) Total Protein 6.7 g/dL (5.7-8.2) Albumin 3.8 g/dL (3.2-4.8) Random Vancomycin Level 12.9 ug/mL (5-10) Lactic Acid Level 1.4 mmol/L (0.4-2.0) Urine Color Dark-brown (Yellow) Urine Clarity Ex.turbid (Clear) Urine pH 5.5 (5.0-9.0) Urine Specific [place] 1.010 (1.001-1.035) Urine Protein 1+ (Negative) Urine Ketones Negative (Negative) Urine Blood 3+ /uL (Negative) Urine Nitrite Negative (Negative) Urine Bilirubin Negative (Negative) Urine Urobilinogen 2 mg/dL (Negative) Urine Leukocyte Esterase 3+ /uL (Negative) Urine RBC 113 /hpf (0 - 3) Urine WBC Clumps Present /hpf (None Seen) Urine Microscopic WBC 1830 /HPF (0-3) Urine Squamous Epithelial Cells None seen /hpf (<5) Urine Amorphous Crystals Few /hpf (None Seen) Urine Bacteria Few /hpf (None Seen) Urine Glucose Normal mg/dL (Normal) Test 11/14/24 12:00 Prothrombin Time 11.9 sec (9.3-11.8) Prothrombin Time INR 1.14 (0.9-1.15) Activated Partial Thromboplast Time 23.9 SEC (24.5-34.5) Other Laboratory Tests 11/18/24 09:32 Brief Hx & Hospital Course: This is a 74 year old male BIBA presenting to the ED with chief complaint of abdominal pain. EMS reports that the patient is coming from [facility] for abdominal pain for the past 3 days with associated fever and generalized weakness for the past 3 weeks. EMS relays that the patient is bed bound and currently has a Faith catheter which was noted to have cloudy urine today. Patient denies any chest pain, SOB, dizziness, chills, dysuria, hematuria, or N/V/D. He is admitted and treated for her infection with the antibiotics. Patient had a Faith catheter placed and changed to leg bag and advised to follow up with the Urology outpatient basis. Otherwise while in the hospital he is kidney functions symptoms have improved. His urine cultures are growing E coli/Enterococcus organisms. Blood cultures are negative for any growth. Patient is advised to finish the antibiotics as he is prescribed and have close follow up with the urologist. Patient verbalized understanding of this and agree with the discharge care plan as outlined Condition at Discharge: Stable Final Diagnosis/Problems List Acute UTI, obstructive uropathy due to enlarged prostate, chronic indwelling Faith catheter, adult failure to thrive Discharge Disposition: Alf Facility Discharge Instruct/Medications Diet: Consistent carbohydrate, Cardiac 2g Na,low cholest Activity: No Restrictions, As Tolerated Follow Up/Referral: Urologist Dr. Keith Griffith after two weeks for enlarged prostate management Medications: Levaquin as prescribed and her room home medications per discharge med reconciliation list Scheduled Aspirin (Aspir-Low), 81 MG PO DAILY, (Reported) Divalproex Sodium (Divalproex Sodium), 500 MG PO DAILY, (Reported) Finasteride (Finasteride), 5 MG PO DAILY, (Reported) Levofloxacin Hemihydrate (Levofloxacin), 1 TAB PO DAILY Magnesium Oxide (Magnesium Oxide), 400 MG PO DAILY, (Reported) Simvastatin (Simvastatin), 1 TAB PO QPM, (Reported) Scheduled PRN Loperamide Hcl (Loperamide Hcl), 2 MG PO Q6HPRN PRN for FOR DIARRHEA, (Reported) Miscellaneous Medications Magnesium Hydroxide (Milk Of Magnesia Oral Suspension), 30 ML PO, (Reported) Discharge Statement: "Patient was advised to return to the ER or call 911 if any headaches, dizziness, shortness of breath, chest pain, abdominal pain, bleeding, fevers, or worsening of medical condition. Patient was counseled about treatment plan, medications, possible side effects, patientverbalized understanding. All questions were answered to the best of my ability. This discharge took greater then 30 minutes in planning, reviewing documentation, counseling the patient, and discussing with other team members." ASSESSMENT ASSESSMENT Assessment Acute UTI, obstructive uropathy due to enlarged prostate, chronic indwelling Faith catheter, adult failure to thrive Date of Service: Nov 18, 2024 Billing Provider: ALEE JENKINS MD Common Visit Codes: [id number] DISCH DAY <30MIN ALEE JENKINS MD Nov 18, 2024 13:51
--- NOTE | 2024-11-18 16:04 | DVHPN2 ---
Subjective Clinically improving. Mentation is improved and appetite is improving. Faith catheter have to be reinserted due to retaining urine. Changes from previous H/P or p: No Changes Objective Vitals Vital Signs Date Time Temp Pulse Resp B/P (MAP) Pulse Ox O2 Delivery O2 Flow Rate FiO2 11/18/24 15:30 97.8 106 18 92 11/18/24 13:00 120/73 (89) 11/18/24 08:00 Nasal Cannula* 2 28 Intake/Output Intake and Output 11/18/24 07:00 Intake Total 670 ml Output Total 2520 ml Balance -1850 ml Intake Oral 570 ml IV Total 100 ml Output Urine Total 2520 ml Exam Early elderly frail-appearing gentleman in bed without significant cardiopulmonary distress. His son is at bedside. HEENT notable for pupils equal round react to light. Neck supple no JVD. Heart regular rate and rhythm S1-S2. Lungs fair air movement with a poor inspiratory effort. Abdomen soft positive bowel sounds nontender. Extremities visible muscle wasting noted. Positive distal pedal pulses noted. Patient has bilateral heel wounds which are present on admission. Medications Current Medications Medications Dose Ordered Sig/[place] Route Start Time Stop Time Status Last Admin Dose Admin Sodium Chloride 10 ml Q8HR IV 11/14/24 22:00 11/18/24 13:22 10 ML Docusate Sodium 100 mg BIDPRN PRN PO 11/14/24 19:30 11/17/24 09:47 100 MG Acetaminophen/ Hydrocodone Bitart 1 tab Q4HP PRN PO 11/14/24 19:30 Ondansetron HCl 4 mg Q4HP PRN IV 11/14/24 19:30 Acetaminophen 650 mg Q6HP PRN PO 11/14/24 22:00 11/18/24 13:19 650 MG Enteral Nutritional Formula 240 ml BIDWM PO 11/15/24 18:00 11/18/24 07:43 240 ML Tamsulosin HCl 0.4 mg QPM PO 11/15/24 18:00 11/17/24 17:48 0.4 MG Finasteride 5 mg DAILY PO 11/16/24 10:00 11/18/24 09:38 5 MG Enoxaparin Sodium 30 mg DAILY SC 11/16/24 10:00 11/18/24 09:40 30 MG Aspirin 81 mg DAILY PO 11/16/24 10:00 11/18/24 09:38 81 MG Loperamide HCl 2 mg Q6HPRN PRN PO 11/15/24 13:30 Divalproex Sodium 500 mg DAILY PO 11/16/24 10:00 11/18/24 09:40 500 MG Magnesium Oxide 400 mg DAILY PO 11/16/24 10:00 11/18/24 09:38 400 MG Levofloxacin/ Dextrose 100 ml @ 100 mls/hr DAILY IV 11/17/24 10:00 11/18/24 09:40 100 MLS/HR Megestrol Acetate 200 mg BID PO 11/17/24 22:00 11/18/24 09:40 200 MG Laboratory Results Laboratory Tests 11/18/24 09:32 Chemistry Test 11/18/24 09:32 Albumin 3.8 g/dL (3.2-4.8) Calcium Level 9.8 mg/dL (8.7-10.4) Total Protein 6.7 g/dL (5.7-8.2) LFT Test 11/18/24 09:32 Alanine Aminotransferase (ALT) 251 U/L (7-40) H Alkaline Phosphatase 352 U/L (46-116) H Aspartate Amino Transferase (AST) 88 U/L (13-40) H Total Bilirubin 0.2 mg/dL (0.2-1.0) Urinalysis Test 11/14/24 16:06 Urine Color Dark-brown (Yellow) Urine Clarity Ex.turbid (Clear) Urine pH 5.5 (5.0-9.0) Urine Specific [place] 1.010 (1.001-1.035) Urine Protein 1+ (Negative) H Urine Ketones Negative (Negative) Urine Blood 3+ /uL (Negative) H Urine Nitrite Negative (Negative) Urine Bilirubin Negative (Negative) Urine Urobilinogen 2 mg/dL (Negative) H Urine Leukocyte Esterase 3+ /uL (Negative) Urine RBC 113 /hpf (0 - 3) Urine WBC Clumps Present /hpf (None Seen) Urine Microscopic WBC 1830 /HPF (0-3) H Urine Squamous Epithelial Cells None seen /hpf (<5) Urine Amorphous Crystals Few /hpf (None Seen) Urine Bacteria Few /hpf (None Seen) H Urine Glucose Normal mg/dL (Normal) Microbiology Microbiology Date/Time Source Procedure Growth Status 11/15/24 02:30 Nose MRSA Screen - Final Complete 11/14/24 16:06 Voided Urine Urine Culture - Final Escherichia coli Enterococcus faecalis Complete 11/14/24 12:00 Blood Blood Culture - Preliminary NO GROWTH AFTER 72 HOURS OF INCUBATION. Resulted Assessment/Plan Assessment/Plan Continue Levaquin orally for acute UTI. Continue physical therapy. Evaluated by urologist recommending outpatient follow up for prostate surgery given a obstructive uropathy requiring chronic Faith. Discussed with the son and patient risks of recurrent urinary tract infections due to Faith catheter and recommended to exchange every 3-4 weeks with a new one. Otherwise given patient is clinically stable and feeling better it is felt he could be safely discharged [facility]. This is discussed with the patient and son and both have verbalized understanding of this and agree with the care plan. Plan discussed with: Patient, Son My Orders Orders - ALEE JENKINS MD Procedure Category Date Status Time * Lease Examiner CONS 11/18/24 Transmitted Consult Discharge DISCHARGE 11/18/24 Transmitted 13:50 Levofloxacin Tablet PHA 11/19/24 Verified (Levaquin Tablet) 10:00 Date of Service: Nov 18, 2024 Billing Provider: ALEE JENKINS MD Common Visit Codes: [id number] INP/OBS CARE(MOD) ALEE JENKINS MD Nov 18, 2024 16:04
[2024-11-19 05:00] VITALS: BP 104/75; PULSE 102; RESP 17; TEMP 97.9; O2SAT 100
[2024-11-19 07:47] LABS: Anion Gap 10 (5-15); BUN/Creatinine Ratio 37.9 (10.0-20.0); Calcium 9.7 mg/dL (8.7-10.4); Carbon Dioxide 25 mmol/L (20-31); Chloride 105 mmol/L (98-107); Glucose 89 mg/dL (74-106); Potassium 4.3 mmol/L (3.5-5.1); Sodium 140 mmol/L (136-145); Total Protein 6.1 g/dL (5.7-8.2)
[2024-11-19 07:48] LABS: Albumin 3.5 g/dL (3.2-4.8)
[2024-11-19 07:58] LABS: Hematocrit 23.5 % (41.0-53.0); Mean Corpuscular Hemoglobin 28.8 pg (28.0-32.0); Mean Corpuscular Volume 88.3 fL (80.0-100.0); Nucleated Red Blood Cells % 0.0 %
[2024-11-19 07:59] LABS: Alanine Aminotransferase 219 U/L (7-40); Alkaline Phosphatase 296 U/L (46-116); Bilirubin, Total 0.2 mg/dL (0.2-1.0); Blood Urea Nitrogen 44 mg/dL (9-23); Hemoglobin 7.7 g/dL (13.5-17.5)
[2024-11-19 09:00] VITALS: BP 132/77; PULSE 105; RESP 19; TEMP 98.1; O2SAT 100
[2024-11-19] MEDS: levoFLOXacin 500 MG TAB PO SCH (10:23)
[2024-11-19 13:00] VITALS: BP 109/79; PULSE 79; RESP 18; TEMP 98.6; O2SAT 95
[2024-11-19 17:00] VITALS: BP 93/67; PULSE 56; RESP 18; TEMP 98; O2SAT 96
[2024-11-19 20:00] VITALS: PULSE 114; RESP 20; O2SAT 100
[2024-11-19 21:00] VITALS: BP 123/64; PULSE 114; RESP 21; TEMP 98.2; O2SAT 100
[2024-11-20] VITALS (7 sets, daily range): BP systolic 105–126; BP diastolic 68–77; PULSE 108–114; RESP 18–21; TEMP 97.4–98.4; O2SAT 96–100
[2024-11-20] MEDS: PANTOPRAZOLE 40 MG TAB PO SCH (16:04)
--- NOTE | 2024-11-20 18:08 | DVHPN2 ---
Subjective Remains clinically stable except for complains of some nausea. Patient appeal process has finalized and apparently have to leave hospital tomorrow by noontime. Changes from previous H/P or p: No Changes Objective Vitals Vital Signs Date Time Temp Pulse Resp B/P (MAP) Pulse Ox O2 Delivery O2 Flow Rate FiO2 11/20/24 17:00 98.4 108 20 114/72 (86) 97 98.4 11/20/24 08:00 Nasal Cannula* 2 28 Intake/Output Intake and Output 11/20/24 07:00 Intake Total 730 ml Output Total 2550 ml Balance -1820 ml Intake Oral 730 ml Output Urine Total 2550 ml # Bowel Movements 1 Exam Early elderly frail-appearing gentleman in bed without significant cardiopulmonary distress. His son is at bedside. HEENT notable for pupils equal round react to light. Neck supple no JVD. Heart regular rate and rhythm S1-S2. Lungs fair air movement with a poor inspiratory effort. Abdomen soft positive bowel sounds nontender. Extremities visible muscle wasting noted. Positive distal pedal pulses noted. Patient has bilateral heel wounds which are present on admission. Medications Current Medications Medications Dose Ordered Sig/[place] Route Start Time Stop Time Status Last Admin Dose Admin Sodium Chloride 10 ml Q8HR IV 11/14/24 22:00 11/20/24 14:00 10 ML Docusate Sodium 100 mg BIDPRN PRN PO 11/14/24 19:30 11/17/24 09:47 100 MG Acetaminophen/ Hydrocodone Bitart 1 tab Q4HP PRN PO 11/14/24 19:30 Ondansetron HCl 4 mg Q4HP PRN IV 11/14/24 19:30 Acetaminophen 650 mg Q6HP PRN PO 11/14/24 22:00 11/20/24 16:04 650 MG Enteral Nutritional Formula 240 ml BIDWM PO 11/15/24 18:00 11/20/24 17:51 240 ML Tamsulosin HCl 0.4 mg QPM PO 11/15/24 18:00 11/20/24 17:51 0.4 MG Finasteride 5 mg DAILY PO 11/16/24 10:00 11/20/24 10:00 5 MG Enoxaparin Sodium 30 mg DAILY SC 11/16/24 10:00 11/20/24 09:59 30 MG Aspirin 81 mg DAILY PO 11/16/24 10:00 11/20/24 09:59 81 MG Divalproex Sodium 500 mg DAILY PO 11/16/24 10:00 11/20/24 09:59 500 MG Magnesium Oxide 400 mg DAILY PO 11/16/24 10:00 11/20/24 10:00 400 MG Megestrol Acetate 200 mg BID PO 11/17/24 22:00 11/20/24 09:59 200 MG Levofloxacin 500 mg DAILY PO 11/19/24 10:00 11/20/24 10:00 500 MG Pantoprazole Sodium 40 mg BID@0600,1700 PO 11/20/24 17:00 11/20/24 16:04 40 MG Laboratory Results Laboratory Tests 11/19/24 04:43 Urinalysis Test 11/14/24 16:06 Urine Color Dark-brown (Yellow) Urine Clarity Ex.turbid (Clear) Urine pH 5.5 (5.0-9.0) Urine Specific [place] 1.010 (1.001-1.035) Urine Protein 1+ (Negative) H Urine Ketones Negative (Negative) Urine Blood 3+ /uL (Negative) H Urine Nitrite Negative (Negative) Urine Bilirubin Negative (Negative) Urine Urobilinogen 2 mg/dL (Negative) H Urine Leukocyte Esterase 3+ /uL (Negative) Urine RBC 113 /hpf (0 - 3) Urine WBC Clumps Present /hpf (None Seen) Urine Microscopic WBC 1830 /HPF (0-3) H Urine Squamous Epithelial Cells None seen /hpf (<5) Urine Amorphous Crystals Few /hpf (None Seen) Urine Bacteria Few /hpf (None Seen) H Urine Glucose Normal mg/dL (Normal) Microbiology Microbiology Date/Time Source Procedure Growth Status 11/15/24 02:30 Nose MRSA Screen - Final Complete 11/14/24 16:06 Voided Urine Urine Culture - Final Escherichia coli Enterococcus faecalis Complete 11/14/24 12:00 Blood Blood Culture - Final NO GROWTH AFTER 5 DAYS OF INCUBATION. Complete Assessment/Plan Assessment/Plan Continue current oral antibiotics and rest of supportive care and treatment as he is on. Given his nausea I will add proton pump inhibitor. His liver function tests are improving. Patient to have regular bowel movements. Monitor him overnight and discharge tomorrow. Discussed with the nurse. Plan discussed with: Other My Orders Orders - ALEE JENKINS MD Procedure Category Date Status Time Pantoprazole Tablet PHA 11/20/24 In Process (Protonix Tablet) 17:00 Lipase LAB 11/20/24 Verified 18:05 Problem List: (1) UTI (urinary tract infection) (2) Retention of urine (3) BPH (benign prostatic hyperplasia) Date of Service: Nov 20, 2024 Billing Provider: ALEE JENKINS MD Common Visit Codes: [id number] INP/OBS CARE(MOD) ALEE JENKINS MD Nov 20, 2024 18:08
[2024-11-21] VITALS (7 sets, daily range): BP systolic 103–136; BP diastolic 54–79; PULSE 80–119; RESP 18–21; TEMP 97.4–98.6; O2SAT 95–100
[2024-11-21] MEDS: POLYETHYLENE GLYCOL 17 GM PWDR PO PRN (22:15)
--- NOTE | 2024-11-21 22:37 | DVHPN2 ---
Subjective Clinically stable. His family is at bedside and had a long discussion with the [id number]-hv-yva regarding his diagnosis goals of care and expected recovery. Changes from previous H/P or p: No Changes Objective Vitals Vital Signs Date Time Temp Pulse Resp B/P (MAP) Pulse Ox O2 Delivery O2 Flow Rate FiO2 11/21/24 17:07 98.5 118 19 110/54 (72) 98 98.5 11/21/24 08:00 Nasal Cannula* 2 28 Intake/Output Intake and Output 11/21/24 07:00 Intake Total 1320 ml Output Total 2550 ml Balance -1230 ml Intake Oral 1320 ml Output Urine Total 2550 ml Exam Early elderly frail-appearing gentleman in bed without significant cardiopulmonary distress. His son is at bedside. HEENT notable for pupils equal round react to light. Neck supple no JVD. Heart regular rate and rhythm S1-S2. Lungs fair air movement with a poor inspiratory effort. Abdomen soft positive bowel sounds nontender. Extremities visible muscle wasting noted. Positive distal pedal pulses noted. Patient has bilateral heel wounds which are present on admission. Medications Current Medications Medications Dose Ordered Sig/[place] Route Start Time Stop Time Status Last Admin Dose Admin Sodium Chloride 10 ml Q8HR IV 11/14/24 22:00 11/21/24 22:15 10 ML Docusate Sodium 100 mg BIDPRN PRN PO 11/14/24 19:30 11/21/24 06:40 100 MG Acetaminophen/ Hydrocodone Bitart 1 tab Q4HP PRN PO 11/14/24 19:30 Ondansetron HCl 4 mg Q4HP PRN IV 11/14/24 19:30 Acetaminophen 650 mg Q6HP PRN PO 11/14/24 22:00 11/21/24 18:16 650 MG Enteral Nutritional Formula 240 ml BIDWM PO 11/15/24 18:00 11/21/24 18:15 240 ML Tamsulosin HCl 0.4 mg QPM PO 11/15/24 18:00 11/21/24 18:15 0.4 MG Finasteride 5 mg DAILY PO 11/16/24 10:00 11/21/24 10:49 5 MG Enoxaparin Sodium 30 mg DAILY SC 11/16/24 10:00 11/21/24 10:50 30 MG Aspirin 81 mg DAILY PO 11/16/24 10:00 11/21/24 10:49 81 MG Divalproex Sodium 500 mg DAILY PO 11/16/24 10:00 11/21/24 10:49 500 MG Magnesium Oxide 400 mg DAILY PO 11/16/24 10:00 11/21/24 10:49 400 MG Megestrol Acetate 200 mg BID PO 11/17/24 22:00 11/21/24 22:14 200 MG Levofloxacin 500 mg DAILY PO 11/19/24 10:00 11/21/24 10:48 500 MG Pantoprazole Sodium 40 mg BID@0600,1700 PO 11/20/24 17:00 11/21/24 18:16 40 MG Polyethylene Glycol 17 gm DAILYPRN PRN PO 11/21/24 20:00 11/21/24 22:15 17 GM Laboratory Results Laboratory Tests 11/19/24 04:43 Urinalysis Test 11/14/24 16:06 Urine Color Dark-brown (Yellow) Urine Clarity Ex.turbid (Clear) Urine pH 5.5 (5.0-9.0) Urine Specific [place] 1.010 (1.001-1.035) Urine Protein 1+ (Negative) H Urine Ketones Negative (Negative) Urine Blood 3+ /uL (Negative) H Urine Nitrite Negative (Negative) Urine Bilirubin Negative (Negative) Urine Urobilinogen 2 mg/dL (Negative) H Urine Leukocyte Esterase 3+ /uL (Negative) Urine RBC 113 /hpf (0 - 3) Urine WBC Clumps Present /hpf (None Seen) Urine Microscopic WBC 1830 /HPF (0-3) H Urine Squamous Epithelial Cells None seen /hpf (<5) Urine Amorphous Crystals Few /hpf (None Seen) Urine Bacteria Few /hpf (None Seen) H Urine Glucose Normal mg/dL (Normal) Microbiology Microbiology Date/Time Source Procedure Growth Status 11/15/24 02:30 Nose MRSA Screen - Final Complete 11/14/24 16:06 Voided Urine Urine Culture - Final Escherichia coli Enterococcus faecalis Complete 11/14/24 12:00 Blood Blood Culture - Final NO GROWTH AFTER 5 DAYS OF INCUBATION. Complete Assessment/Plan Assessment/Plan Continue present management as he is on. Patient is stable to be discharged to [facility]. Discussed with the family along with the nurse at bedside Plan discussed with: Patient, Son, Other Problem List: (1) UTI (urinary tract infection) (2) Retention of urine (3) BPH (benign prostatic hyperplasia) Date of Service: Nov 21, 2024 Billing Provider: ALEE JENKINS MD Common Visit Codes: [id number] INP/OBS CARE(MOD) ALEE JENKINS MD Nov 21, 2024 22:37
[2024-11-22] VITALS (7 sets, daily range): BP systolic 101–124; BP diastolic 67–75; PULSE 97–110; RESP 18–20; TEMP 97.9–98.5; O2SAT 96–100
[2024-11-22] MEDS: HYDROcodone-ACET 5/325MG TAB PO PRN (10:28)
--- NOTE | 2024-11-22 13:47 | DVH ---
Date: 11/22/2024 09:54 AM Examination: XY KUB ABDOMEN SINGLE VIEW History: RULE OUT CONSTIPATION Comparison: CT CT AB PEL WO CON-NO ORAL OR IV on DOS: 11/18/24, US ABDOMEN COMPLETE SONOGRAM on DOS: 11/14/24 TECHNIQUE: Frontal views of the abdomen was obtained. FINDINGS: Bowel gas pattern is unremarkable. Stool throughout the colon The lung bases are unremarkable. No acute osseous abnormality identified. IMPRESSION: 1. Nonobstructive bowel gas pattern. 2. Stool throughout the colon.
--- NOTE | 2024-11-22 18:30 | DVHPN2 ---
Subjective 74-year-old male who was brought in by [facility] for abdominal pain found to have urinary tract infection as well as urinary retention. Changes from previous H/P or p: No Changes Objective Vitals Vital Signs Date Time Temp Pulse Resp B/P (MAP) Pulse Ox O2 Delivery O2 Flow Rate FiO2 11/22/24 17:49 98.3 100 20 110/67 (81) 98 98.3 11/22/24 08:00 Nasal Cannula* 2 28 Intake/Output Intake and Output 11/22/24 07:00 Intake Total 600 ml Output Total 2800 ml Balance -2200 ml Intake Oral 600 ml Output Urine Total 2800 ml Exam HEENT pupils are reactive Neck is supple CV is S1-S2 regular rate and rhythm Respiratory are clear GI positive bowel sound Extremity no edema [employer] no motor deficit Medications Current Medications Medications Dose Ordered Sig/[place] Route Start Time Stop Time Status Last Admin Dose Admin Sodium Chloride 10 ml Q8HR IV 11/14/24 22:00 11/22/24 14:00 10 ML Docusate Sodium 100 mg BIDPRN PRN PO 11/14/24 19:30 11/22/24 17:18 100 MG Acetaminophen/ Hydrocodone Bitart 1 tab Q4HP PRN PO 11/14/24 19:30 11/22/24 10:28 1 TAB Ondansetron HCl 4 mg Q4HP PRN IV 11/14/24 19:30 Acetaminophen 650 mg Q6HP PRN PO 11/14/24 22:00 11/21/24 18:16 650 MG Enteral Nutritional Formula 240 ml BIDWM PO 11/15/24 18:00 11/22/24 17:18 240 ML Tamsulosin HCl 0.4 mg QPM PO 11/15/24 18:00 11/22/24 17:18 0.4 MG Finasteride 5 mg DAILY PO 11/16/24 10:00 11/22/24 10:27 5 MG Enoxaparin Sodium 30 mg DAILY SC 11/16/24 10:00 11/22/24 10:33 30 MG Aspirin 81 mg DAILY PO 11/16/24 10:00 11/22/24 10:26 81 MG Divalproex Sodium 500 mg DAILY PO 11/16/24 10:00 11/22/24 10:27 500 MG Magnesium Oxide 400 mg DAILY PO 11/16/24 10:00 11/22/24 10:28 400 MG Megestrol Acetate 200 mg BID PO 11/17/24 22:00 11/22/24 10:26 200 MG Levofloxacin 500 mg DAILY PO 11/19/24 10:00 11/22/24 10:27 500 MG Pantoprazole Sodium 40 mg BID@0600,1700 PO 11/20/24 17:00 11/22/24 17:18 40 MG Polyethylene Glycol 17 gm DAILYPRN PRN PO 11/21/24 20:00 11/21/24 22:15 17 GM Neomycin/ Polymyxin/ Bacitracin 1 applic DAILY TOP 11/23/24 10:00 Laboratory Results Laboratory Tests 11/19/24 04:43 Urinalysis Test 11/14/24 16:06 Urine Color Dark-brown (Yellow) Urine Clarity Ex.turbid (Clear) Urine pH 5.5 (5.0-9.0) Urine Specific [place] 1.010 (1.001-1.035) Urine Protein 1+ (Negative) H Urine Ketones Negative (Negative) Urine Blood 3+ /uL (Negative) H Urine Nitrite Negative (Negative) Urine Bilirubin Negative (Negative) Urine Urobilinogen 2 mg/dL (Negative) H Urine Leukocyte Esterase 3+ /uL (Negative) Urine RBC 113 /hpf (0 - 3) Urine WBC Clumps Present /hpf (None Seen) Urine Microscopic WBC 1830 /HPF (0-3) H Urine Squamous Epithelial Cells None seen /hpf (<5) Urine Amorphous Crystals Few /hpf (None Seen) Urine Bacteria Few /hpf (None Seen) H Urine Glucose Normal mg/dL (Normal) Microbiology Microbiology Date/Time Source Procedure Growth Status 11/15/24 02:30 Nose MRSA Screen - Final Complete 11/14/24 16:06 Voided Urine Urine Culture - Final Escherichia coli Enterococcus faecalis Complete 11/14/24 12:00 Blood Blood Culture - Final NO GROWTH AFTER 5 DAYS OF INCUBATION. Complete Assessment/Plan Assessment/Plan 74-year-old male who initially presented to the hospital with generalized weakness abdominal pain found to have 1. Urinary tract infection with the E coli and Enterococcus faecalis 2. BPH 3. Urinary retention secondary to BPH 4. Transaminitis -repeat LFTs, continue antibiotics, physical therapy evaluation and treatment -DC plan with a Faith catheter with a leg bag -outpatient follow up with the Urology upon discharge. Plan discussed with: Patient My Orders Orders - PAUL TENORIO MD Procedure Category Date Status Time Uymgcijn-Itjqllatpt-Mfdygetjw PHA 11/23/24 In Process (Triple An 10:00 Date of Service: Nov 22, 2024 Billing Provider: PAUL TENORIO MD Common Visit Codes: [id number] INP/OBS CARE(MOD) PAUL TENORIO MD Nov 22, 2024 18:30
[2024-11-22] MEDS: D5W/SOD CHL 0.45% 1,000 ML IV SCH (23:11)
[2024-11-22] MEDS ORDERED: MELATONIN 5 MG TAB PO ONE (23:45)
[2024-11-23 01:00] VITALS: BP 122/78; PULSE 100; RESP 18; TEMP 98; O2SAT 98
[2024-11-23 05:00] VITALS: BP 120/71; PULSE 105; RESP 18; TEMP 98.1; O2SAT 100
[2024-11-23 07:18] LABS: Hemoglobin 7.7 g/dL (13.5-17.5); Mean Corpuscular Volume 86.8 fL (80.0-100.0); Nucleated Red Blood Cells % 0.1 %
[2024-11-23 07:20] LABS: Hematocrit 23.2 % (41.0-53.0); Mean Corpuscular Hemoglobin 28.8 pg (28.0-32.0)
[2024-11-23 07:30] LABS: Albumin 3.9 g/dL (3.2-4.8); Anion Gap 9 (5-15); BUN/Creatinine Ratio 33.8 (10.0-20.0); Calcium 10.3 mg/dL (8.7-10.4); Carbon Dioxide 27 mmol/L (20-31); Chloride 104 mmol/L (98-107); Magnesium 2.0 mg/dL (1.6-2.6); Potassium 4.4 mmol/L (3.5-5.1); Sodium 140 mmol/L (136-145); Total Protein 6.9 g/dL (5.7-8.2)
[2024-11-23 07:31] LABS: Alanine Aminotransferase 133 U/L (7-40); Alkaline Phosphatase 229 U/L (46-116); Bilirubin, Total 0.2 mg/dL (0.2-1.0); Blood Urea Nitrogen 46 mg/dL (9-23); Glucose 122 mg/dL (74-106)
[2024-11-23 08:00] VITALS: PULSE 103; RESP 18; O2SAT 98
[2024-11-23 08:39] VITALS: BP 123/75; PULSE 103; RESP 18; TEMP 98.3; O2SAT 100
[2024-11-23] MEDS: NEOMYCIN-BACITRACIN-POLYM UNITDOSE PKG TOP OINT TOP SCH (08:49)
[2024-11-23 12:47] VITALS: BP 114/69; PULSE 104; RESP 18; TEMP 98.1; O2SAT 100
--- NOTE | 2024-11-23 13:56 | DVHPN2 ---
Subjective 74-year-old male who was brought in by [facility] for abdominal pain found to have urinary tract infection as well as urinary retention. Changes from previous H/P or p: No Changes Objective Vitals Vital Signs Date Time Temp Pulse Resp B/P (MAP) Pulse Ox O2 Delivery O2 Flow Rate FiO2 11/23/24 12:47 98.1 104 18 114/69 (84) 100 98.1 11/23/24 08:00 Nasal Cannula* 2 28 Intake/Output Intake and Output 11/23/24 07:00 Intake Total 725 ml Output Total 1850 ml Balance -1125 ml Intake Oral 725 ml Output Urine Total 1850 ml Exam HEENT pupils are reactive Neck is supple CV is S1-S2 regular rate and rhythm Respiratory are clear GI positive bowel sound Extremity no edema [employer] no motor deficit Medications Current Medications Medications Dose Ordered Sig/[place] Route Start Time Stop Time Status Last Admin Dose Admin Sodium Chloride 10 ml Q8HR IV 11/14/24 22:00 11/22/24 22:30 10 ML Docusate Sodium 100 mg BIDPRN PRN PO 11/14/24 19:30 11/23/24 05:50 100 MG Acetaminophen/ Hydrocodone Bitart 1 tab Q4HP PRN PO 11/14/24 19:30 11/22/24 10:28 1 TAB Ondansetron HCl 4 mg Q4HP PRN IV 11/14/24 19:30 Acetaminophen 650 mg Q6HP PRN PO 11/14/24 22:00 11/21/24 18:16 650 MG Enteral Nutritional Formula 240 ml BIDWM PO 11/15/24 18:00 11/23/24 08:00 240 ML Tamsulosin HCl 0.4 mg QPM PO 11/15/24 18:00 11/22/24 17:18 0.4 MG Finasteride 5 mg DAILY PO 11/16/24 10:00 11/23/24 08:49 5 MG Enoxaparin Sodium 30 mg DAILY SC 11/16/24 10:00 11/23/24 08:49 30 MG Aspirin 81 mg DAILY PO 11/16/24 10:00 11/23/24 08:48 81 MG Divalproex Sodium 500 mg DAILY PO 11/16/24 10:00 11/23/24 08:48 500 MG Magnesium Oxide 400 mg DAILY PO 11/16/24 10:00 11/23/24 08:49 400 MG Megestrol Acetate 200 mg BID PO 11/17/24 22:00 11/23/24 08:50 200 MG Levofloxacin 500 mg DAILY PO 11/19/24 10:00 11/23/24 08:49 500 MG Pantoprazole Sodium 40 mg BID@0600,1700 PO 11/20/24 17:00 11/23/24 05:49 40 MG Polyethylene Glycol 17 gm DAILYPRN PRN PO 11/21/24 20:00 11/22/24 22:31 17 GM Neomycin/ Polymyxin/ Bacitracin 1 applic DAILY TOP 11/23/24 10:00 11/23/24 08:49 1 APPLIC Dextrose/Sodium Chloride 1,000 ml @ 50 mls/hr Q20H IV 11/22/24 21:30 11/22/24 23:11 50 MLS/HR Laboratory Results Laboratory Tests 11/23/24 06:20 Chemistry Test 11/23/24 06:20 Albumin 3.9 g/dL (3.2-4.8) Calcium Level 10.3 mg/dL (8.7-10.4) Magnesium Level 2.0 mg/dL (1.6-2.6) Total Protein 6.9 g/dL (5.7-8.2) LFT Test 11/23/24 06:20 Alanine Aminotransferase (ALT) 133 U/L (7-40) H Alkaline Phosphatase 229 U/L (46-116) H Aspartate Amino Transferase (AST) 38 U/L (13-40) Total Bilirubin 0.2 mg/dL (0.2-1.0) Urinalysis Test 11/14/24 16:06 Urine Color Dark-brown (Yellow) Urine Clarity Ex.turbid (Clear) Urine pH 5.5 (5.0-9.0) Urine Specific [place] 1.010 (1.001-1.035) Urine Protein 1+ (Negative) H Urine Ketones Negative (Negative) Urine Blood 3+ /uL (Negative) H Urine Nitrite Negative (Negative) Urine Bilirubin Negative (Negative) Urine Urobilinogen 2 mg/dL (Negative) H Urine Leukocyte Esterase 3+ /uL (Negative) Urine RBC 113 /hpf (0 - 3) Urine WBC Clumps Present /hpf (None Seen) Urine Microscopic WBC 1830 /HPF (0-3) H Urine Squamous Epithelial Cells None seen /hpf (<5) Urine Amorphous Crystals Few /hpf (None Seen) Urine Bacteria Few /hpf (None Seen) H Urine Glucose Normal mg/dL (Normal) Microbiology Microbiology Date/Time Source Procedure Growth Status 11/15/24 02:30 Nose MRSA Screen - Final Complete 11/14/24 16:06 Voided Urine Urine Culture - Final Escherichia coli Enterococcus faecalis Complete 11/14/24 12:00 Blood Blood Culture - Final NO GROWTH AFTER 5 DAYS OF INCUBATION. Complete Assessment/Plan Assessment/Plan 74-year-old male who initially presented to the hospital with generalized weakness abdominal pain found to have 1. Urinary tract infection with the E coli and Enterococcus faecalis 2. BPH 3. Urinary retention secondary to BPH 4. Transaminitis -repeat LFTs, continue antibiotics, physical therapy evaluation and treatment -DC plan with a Faith catheter with a leg bag -outpatient follow up with the Urology upon discharge. Plan discussed with: Patient, Other (Patient's bedside RN.) My Orders Orders - PAUL TENORIO MD Procedure Category Date Status Time Iifwwhlc-Lotdluhqey-Soamajrch PHA 11/23/24 In Process (Triple An 10:00 Date of Service: Nov 23, 2024 Billing Provider: PAUL TENORIO MD Common Visit Codes: [id number] INP/OBS CARE(MOD) PAUL TENORIO MD Nov 23, 2024 13:56
[2024-11-23 16:37] VITALS: BP 115/61; PULSE 105; RESP 18; TEMP 98.6; O2SAT 99
--- NOTE | 2024-11-24 13:09 | DVHDS2 ---
Discharge Summary Date of Admission Nov 14, 2024 at 19:17 Date of Discharge: Nov 23, 2024 Labs/Diagnostic Data: Laboratory Results Test 11/23/24 06:20 11/20/24 19:22 11/15/24 10:35 11/14/24 20:33 White Blood Count 8.1 10^3/uL (4.4-10.8) Red Blood Count 2.67 10^6/uL (4.5-5.90) Hemoglobin 7.7 g/dL (13.5-17.5) Hematocrit 23.2 % (41.0-53.0) Mean Corpuscular Volume 86.8 fL (80.0-100.0) Mean Corpuscular Hemoglobin 28.8 pg (28.0-32.0) Mean Corpuscular Hemoglobin Concent 33.1 g/dL (32.0-36.0) Red Cell Distribution Width 15.9 % (11.8-14.3) Platelet Count 416 10^3/uL (140-450) Mean Platelet Volume 6.7 fL (6.9-10.8) Neutrophils (%) (Auto) 68.1 % (37.0-80.0) Lymphocytes (%) (Auto) 22.4 % (10.0-50.0) Monocytes (%) (Auto) 8.3 % (0.0-12.0) Eosinophils (%) (Auto) 0.8 % (0.0-7.0) Basophils (%) (Auto) 0.4 % (0.0-2.0) Neutrophils # (Auto) 5.5 10 ^3/uL (1.6-8.6) Lymphocytes # (Auto) 1.8 10 ^3/uL (0.4-5.4) Monocytes # (Auto) 0.7 10 ^3/uL (0-1.3) Eosinophils # (Auto) 0.1 10 ^3/uL (0-0.8) Basophils # (Auto) 0 10 ^3/uL (0-0.2) Nucleated Red Blood Cells 0.1 % Sodium Level 140 mmol/L (136-145) Potassium Level 4.4 mmol/L (3.5-5.1) Chloride Level 104 mmol/L (98-107) Carbon Dioxide Level 27 mmol/L (20-31) Anion Gap 9 (5-15) Blood Urea Nitrogen 46 mg/dL (9-23) Creatinine 1.36 mg/dL (0.700-1.30) Glomerular Filtration Rate Calc 54 mL/min (>90) BUN/Creatinine Ratio 33.8 (10.0-20.0) Serum Glucose 122 mg/dL (74-106) Calcium Level 10.3 mg/dL (8.7-10.4) Magnesium Level 2.0 mg/dL (1.6-2.6) Total Bilirubin 0.2 mg/dL (0.2-1.0) Aspartate Amino Transferase (AST) 38 U/L (13-40) Alanine Aminotransferase (ALT) 133 U/L (7-40) Alkaline Phosphatase 229 U/L (46-116) Total Protein 6.9 g/dL (5.7-8.2) Albumin 3.9 g/dL (3.2-4.8) Lipase 79 U/L (12-53) Random Vancomycin Level 12.9 ug/mL (5-10) Lactic Acid Level 1.4 mmol/L (0.4-2.0) Test 11/14/24 16:06 11/14/24 12:00 Urine Color Dark-brown (Yellow) Urine Clarity Ex.turbid (Clear) Urine pH 5.5 (5.0-9.0) Urine Specific [place] 1.010 (1.001-1.035) Urine Protein 1+ (Negative) Urine Ketones Negative (Negative) Urine Blood 3+ /uL (Negative) Urine Nitrite Negative (Negative) Urine Bilirubin Negative (Negative) Urine Urobilinogen 2 mg/dL (Negative) Urine Leukocyte Esterase 3+ /uL (Negative) Urine RBC 113 /hpf (0 - 3) Urine WBC Clumps Present /hpf (None Seen) Urine Microscopic WBC 1830 /HPF (0-3) Urine Squamous Epithelial Cells None seen /hpf (<5) Urine Amorphous Crystals Few /hpf (None Seen) Urine Bacteria Few /hpf (None Seen) Urine Glucose Normal mg/dL (Normal) Prothrombin Time 11.9 sec (9.3-11.8) Prothrombin Time INR 1.14 (0.9-1.15) Activated Partial Thromboplast Time 23.9 SEC (24.5-34.5) Other Laboratory Tests 11/23/24 06:20 Brief Hx & Hospital Course: 74-year-old male who initially presented to the hospital with generalized weakness abdominal pain found to have urinary tract infection with the E coli and Enterococcus faecalis. Patient was treated with the IV antibiotics which was switched to p.o. antibiotic. Patient also has a BPH with a urinary retention status post Faith catheter placement. Urology evaluated the patient outpatient follow up with the Urology for cystoscopy and intervention. Patient's liver function tests were trending down. Patient is being discharged to senior living facility under stable condition. 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 Keith Griffith after two weeks for enlarged prostate management Medications: Levaquin as prescribed and her room home medications per discharge med reconciliation list Scheduled Aspirin (Aspir-Low), 81 MG PO DAILY, (Reported) Divalproex Sodium (Divalproex Sodium), 500 MG PO DAILY, (Reported) Finasteride (Finasteride), 5 MG PO DAILY, (Reported) Levofloxacin Hemihydrate (Levofloxacin), 1 TAB PO DAILY Magnesium Oxide (Magnesium Oxide), 400 MG PO DAILY, (Reported) Simvastatin (Simvastatin), 1 TAB PO QPM, (Reported) Scheduled PRN Loperamide Hcl (Loperamide Hcl), 2 MG PO Q6HPRN PRN for FOR DIARRHEA, (Reported) Miscellaneous Medications Magnesium Hydroxide (Milk Of Magnesia Oral Suspension), 30 ML PO, (Reported) Discontinued Medications Acetazolamide (Acetazolamide), 500 MG PO Q6HR, (Reported) Furosemide (Furosemide), 20 MG PO DAILY, (Reported) Discharge Statement: "Patient was advised to return to the ER or call 911 if any headaches, dizziness, shortness of breath, chest pain, abdominal pain, bleeding, fevers, or worsening of medical condition. Patient was counseled about treatment plan, medications, possible side effects, patientverbalized understanding. All questions were answered to the best of my ability. 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
== END 2024-11-23 19:15 | DRG 698 ==
LOC: EDBD 10:32 → ER 10:32 → OVERFLOW 19:17 → WEST WING 23:02
PROVIDERS: ADMIT Hospitalist; ATTEND Hospitalist
DX: T83.511A Infection and inflammatory reaction due to indwelling urethral catheter, initial encounter (principal); N17.0 Acute kidney failure with tubular necrosis; E87.20 Acidosis, unspecified; N13.8 Other obstructive and reflux uropathy; R62.7 Adult failure to thrive; R74.01 Elevation of levels of liver transaminase levels; R79.89 Other specified abnormal findings of blood chemistry; B95.2 Enterococcus as the cause of diseases classified elsewhere; B96.20 Unspecified Escherichia coli [E. coli] as the cause of diseases classified elsewhere; N40.1 Benign prostatic hyperplasia with lower urinary tract symptoms; Z68.23 Body mass index [BMI] 23.0-23.9, adult; R33.8 Other retention of urine; Z74.01 Bed confinement status; Z79.899 Other long term (current) drug therapy; Z80.0 Family history of malignant neoplasm of digestive organs; Z87.891 Personal history of nicotine dependence
CPT/HCPCS: 36415; 71045; 74018; 74176; 76700; 76857; 80053; 80202; 81001; 83605; 83690; 83735; 85025; 85610; 85730; 87040; 87081; 87086; 87088; 87186; 93005; 96365; 97110; 97163; 99291; 99292; G0378; J1956